=== PATIENT | male | born 1960 | race Caucasian/White ===

== ENCOUNTER 2018-05-24 12:16 | Emergency (ER) | payer OTHER, SELFPAY ==
[2018-05-24] MEDS ORDERED: Adacel (T-DAP) 0.5 ML SYRINGE ONE (12:32)
[2018-05-24] MEDS ORDERED: Bacitracin Zinc 1 Packet ONE (12:44)
--- NOTE | 2018-05-24 13:04 | RAD ---
RIGHT FOOT THREE VIEWS: History: Right foot injury. FINDINGS: Lisfranc joint alignment is anatomic. Plantar arch is maintained. Small plantar and Achilles enthesop hyte. Osteophytosis throughout the foot. Joint space narrowing and subchondral sclerosis most pronoun rafael at the first metatarsal phalangeal joint. No acute fracture, dislocation, or aggressive osseous e rosions. IMPRESSION: Degenerative changes most pronounced at the first metatarsal phalangeal joint. No acute osseous abnor malities are demonstrated. POS: [facility]
== END 2018-05-24 13:25 | disposition home or self-care (01) ==
LOC: SCSER 12:16
DX: S91.311A Laceration without foreign body, right foot, initial encounter (principal); E11.9 Type 2 diabetes mellitus without complications; I10 Essential (primary) hypertension; F17.220 Nicotine dependence, chewing tobacco, uncomplicated; W22.03XA Walked into furniture, initial encounter
CPT/HCPCS: 90471; 90715

== ENCOUNTER 2019-05-04 17:39 | Observation (INO) | payer SELFPAY ==
[~2019-05-04 17:39] MED LIST: Iopamidol-370 76% 500 ML 1 ML ONE
[2019-05-04 18:09] LABS: #Basophils 0.1 thou/uL (0.0-0.2); #Eosinphils 0.1 thou/uL (0.0-0.7); #Lymphocytes 1.6 thou/uL (1.20-3.40); #Monocytes 0.6 thou/uL (0.11-0.59); #Neutrophils 3.9 thou/uL (1.40-6.50); %Basophils 1.2 % (0.0-1.0); %Eosinophils 2.1 % (0.0-10.0); %Monocytes 9.7 % (0.0-10.0); Hemoglobin 15.5 g/dL (14.0-18.0); Mean Corpuscular HGB CONC 35.6 g/dL (32.0-36.0); Mean Corpuscular Hemoglobin 32.7 pg (27.0-31.0); Mean Corpuscular Volume 91.8 fL (78.0-98.0); Mean Platelet Volume 9.3 fL (7.4-10.4); Platelet Count 72 thou/uL (130-400); RBC Distribution Width 11.9 % (11.5-14.5); Red Blood Cell (RBC) Count 4.73 mill/uL (4.70-6.10); White Blood Cell (WBC) Count 6.4 thou/uL (4.8-10.8)
[2019-05-04 18:27] LABS: ALT (SGPT) 34 U/L (8-55); AST (SGOT) 41 U/L (5-34); Albumin 3.6 g/dL (3.5-5.0); Alkaline Phosphatase 98 U/L (40-110); Anion Gap 14 mmol/L (10-20); BUN (Urea Nitrogen) 16 mg/dL (8.4-25.7); Bilirubin, Total 4.2 mg/dL (0.2-1.2); Calc. Creatinine Clearance 0 mL/min (70-130); Calcium 9.2 mg/dL (7.8-10.44); Carbon Dioxide 26 mmol/L (22-29); Chloride 99 mmol/L (98-107); Estimated GFR-MDRD 82; Globulin 3.3 g/dL (2.4-3.5); Glucose 187 mg/dL (70-105); Lipase 56 U/L (8-78); Protein, Total 6.9 g/dL (6.0-8.3); Sodium 135 mmol/L (136-145)
--- NOTE | 2019-05-04 18:34 | RAD ---
PORTABLE CHEST: 05/04/19 HISTORY: Mid sternal chest pain. COMPARISON: A 08/14/16 study. Heart size and mediastinum are within normal limits. Lungs are clear of any infiltrative process. An azygos lobe is incidentally seen. IMPRESSION: No active intrathoracic disease. POS: [facility]
[2019-05-04] MEDS ORDERED: Morphine 4 MG/ML VIAL ONE (18:35)
[2019-05-04] MEDS ORDERED: Ondansetron PF 4 MG/2 ML Vial ONE (18:35)
--- NOTE | 2019-05-04 19:00 | ULT ---
GALLBLADDER ULTRASOUND: 05/04/19 HISTORY: Right upper quadrant pain. Exam is limited by body habitus. There is echogenic density with shadowing in the expected location o f the gallbladder. This is most compatible with a contracted gallbladder with gallstones. The common duct is 5 mm. Liver is difficult to visualize. It is of mild increased echogenicity. No focal abnor malities. Right kidney is also difficult to visualize but does not appear obstructed. The pancreas is totally o bscured. IMPRESSION: Dense shadowing from the expected location of the gallbladder. This would be most compatible with a c ontracted gallbladder with gallstones with a normal caliber common duct. POS: [facility]
--- NOTE | 2019-05-04 20:14 | CT ---
CT ABDOMEN AND PELVIS PERFORMED WITH CONTRAST ENHANCEMENT: 05/04/19 HISTORY: Abdominal pain. The lung bases are clear of infiltrates. The liver shows no focal abnormalities. The spleen is marked ly enlarged. It measures 17.5 cm in length. The pancreas region is unremarkable. Gallstones are prese nt within a contracted gallbladder. Right and left adrenal glands and right and left kidneys are normal in appearance. The appendix is re trocecal in location and normal in size. CT OF PELVIS PERFORMED WITH CONTRAST ENHANCEMENT: No evidence of adenopathy, mass, or free fluid. Postoperative changes of the spine are noted. IMPRESSION: 1. Gallstones within a contracted gallbladder. 2. Marked splenomegaly. POS: [facility]
[2019-05-04] MEDS ORDERED: Aspirin Chewable 81 MG TAB ONE (21:04)
[2019-05-04 21:20] LABS: Bilirubin Negative (Negative); Blood, Urine Negative (Negative); Clarity Clear (Clear); Glucose, Urine (Dipstick) 150 mg/dL (Negative); Leukocyte Negative Leu/uL (Negative); Nitrite Negative (Negative); Protein, Urine (Dipstick) Negative (Neg-Trace)
[2019-05-04] MEDS ORDERED: Nitroglycerin 0.4 MG TAB (25 Tab Bottle) PO PRN (22:45)
[2019-05-04 23:01] LABS: CKMB 3.6 ng/mL (0-6.6)
[2019-05-04] MEDS ORDERED: Ondansetron PF 4 MG/2 ML Vial IVP PRN (23:10)
[2019-05-04] MEDS ORDERED: Ondansetron ODT 4 MG TAB SL PRN (23:10)
[2019-05-04] MEDS ORDERED: Morphine 4 MG/ML VIAL SLOW IVP PRN (23:11)
[2019-05-04 23:13] VITALS: BMI 39.0
[2019-05-04] MEDS ORDERED: Sodium Chloride 0.9% 1,000 ML IV SCH (23:15)
[2019-05-05 01:31] LABS: Troponin I 0.015 ng/mL (< 0.028)
--- NOTE | 2019-05-05 02:06 | HP ---
CHIEF COMPLAINT: Chest pain. HISTORY OF PRESENT ILLNESS: This patient is a 59-year-old male with history of diabetes, hypertension, and smokeless tobacco use. He presented to the emergency department reporting chest pain. The patient reports that he has recently been referred from his primary care provider, Dr. Robert Sanderson to Dr. Trammell. He thought it was because he was having skin tears and purpura on his arms, but I suspect it may have something to do with his thrombocytopenia as well. Dr. Trammell subsequently had the patient seen by [facility]. He was referred to Dr. Reza, he is not sure why, but I suspect it has something to do with his elevated bilirubins, and he said GI and Dr. Reza referred him to a type proof reproducer. He saw Dr. Hooker and said he had an echocardiogram done, which apparently revealed his heart was "strong," but that he had a valve issue, but he does not know the details of that at this time. Today, the patient came in again reporting chest pain. He states that it started a couple of weeks ago. It was intermittent, but has become more frequent and more intense. Last night, it was severe, was a 9/10 to the point where he could not sleep. It persisted today and so he came to the emergency department, described it as a sharp pain in the central chest. He felt a little bit in his right shoulder and neck, but has recently had a fall causing some bruising over his back around April 22, so he was not sure if it was related to that. He presented here and indicated he had no associated shortness of breath or diaphoresis. He does report some mild nausea and lightheadedness and he also indicates that he has slight tenderness in the area of his xiphoid. The patient also reports that he has a nodule in the area behind his scrotum that has been present for a long while and is generally sore. REVIEW OF SYSTEMS: Notable for generally poor sleep. Otherwise, he has had normal appetite, bowel and bladder habits. All other systems reviewed. All pertinent positives and negatives noted in the history of present illness. PAST MEDICAL HISTORY: Again as above, notable for diabetes mellitus, hypertension, osteoarthritis. He has severe varicose veins and chronic stasis dermatitis. PAST SURGICAL HISTORY: He has had back surgery, lumbar spine with hardware, has had right shoulder surgery with hardware. FAMILY HISTORY: Father had diabetes, coronary artery disease with CABG. Mother had diabetes mellitus with cardiomegaly, coronary artery disease and a CVA. SOCIAL HISTORY: The patient uses snuff tobacco. Does not smoke. Denies alcohol or drugs. He is . His sister, Edna Carlson, would be his surrogate decision maker should that become necessary. ALLERGIES: NONE REPORTED. MEDICATIONS: 1. Lasix 40 mg daily p.r.n. edema. 2. Aldactone 100 mg daily. 3. Lisinopril 20 mg daily. 4. Metformin 500 mg daily. 5. Magnesium 250 mg p.o. daily. PHYSICAL EXAMINATION: VITAL SIGNS: Last recorded vitals, BP 157/73, pulse 62, respirations 17, temperature is 98.3, O2 saturation 100% on room air. GENERAL APPEARANCE: Age-appropriate male. He is in no distress. He is awake, alert, pleasant, cooperative. He is obese. HEENT: EVELINA. No OP lesions. Has significant upper dental hardware. NECK: Supple and symmetric. HEART: Regular rate and rhythm. I do not appreciate any murmurs. LUNGS: Clear to auscultation bilaterally with good chest wall expansion or exchange. ABDOMEN: Soft, nontender, and nondistended. Positive bowel sounds. No masses. No organomegaly. EXTREMITIES: There is no cyanosis, clubbing, or edema. Presently, he does have varicose veins all the way up to the thighs. He has stasis dermatitis bronzing. PSYCHIATRIC: Normal affect and behavior. NEUROLOGIC: The patient moves all extremities spontaneously. He is cognitively intact and cranial nerves are functioning normally. GENITOURINARY: There is a 1 x 3 cm firm, smooth, nodular, subcutaneous that is slightly tender without significant erythema or drainage consistent with a subcutaneous cyst. LABORATORY DATA: White count 6.4, hemoglobin 15.5, platelet count 72,000. Old labs indicate they were low going back as far as 2017. Chemistry; sodium is 135, glucose 187, total bilirubin is 4.2 with old labs indicating that this has been elevated previously going back to 2017. AST is 41, ALT is 34, CK 77, and troponin less than 0.01 with subsequent 0.03. BNP 100.7. Albumin 3.6. Urinalysis shows trace ketones and glucose. CT scan of the abdomen and pelvis show gallstones in a contracted gallbladder and marked splenomegaly. Chest x-ray is negative. Abdominal ultrasound, dense shadowing from the expected location of the gallbladder, most compatible with contracted gallbladder and gallstones with a normal caliber common bile duct. EKG shows normal sinus rhythm at 75 beats per minute with no ischemic changes. IMPRESSION AND PLAN: 1. Chest pain, unclear etiology, but certainly concerning in a patient who has a family history of coronary artery disease, diabetes and hypertension along with obesity and smokeless tobacco use. He has an initial negative troponin with subsequent is indeterminate. We will keep him in observation. Continue monitoring troponins. Keep him on a manager monitoring. He did receive aspirin in the emergency department. However, he has splenomegaly and thrombocytopenia. We will not be more aggressive with anticoagulation unless prompted to do so by new findings. We will schedule him for a nuclear medicine stress test in the morning. Other etiologies include possible gallstone related pain, although I suspect it is not that. He also has some tenderness to palpation of the xiphoid, but I do not believe this is musculoskeletal in nature either, although it is possible. 2. Thrombocytopenia with splenomegaly. The patient has been seen previously by Dr. Trammell, I do not have any records other than previous labs ordered by Dr. Trammell. I suspect the thrombocytopenia is related to the splenomegaly, although the splenomegaly is of unknown etiology. This appears to be long-standing and suspect the best course of action will be to simply contact Dr. Trammell' office when possible to get some further history on that. 3. Splenomegaly as above, chronic, unclear etiology. 4. Hypertension. Continue usual home medications. 5. Diabetes mellitus. We will continue with the metformin for now. I suspect if we find something that warrants a contrast study, it can be held subsequent. Continue Accu-Cheks. 6. Perineal cyst that appears chronic and stable. No acute intervention indicated. 7. Elevated bilirubin, unclear etiology, but I do not suspect it is related to acute issues. It has been elevated for a couple of years and may simply be Gilbert syndrome. Again, he has seen Dr. Reza previously, who can likely reach out to him for further information on that. Job ID: [id number]
[2019-05-05 05:07] LABS: Hemoglobin A1c 9.6 % (4.0-6.0)
[2019-05-05 05:08] LABS: #Basophils 0.1 thou/uL (0.0-0.2); #Eosinphils 0.2 thou/uL (0.0-0.7); #Lymphocytes 1.5 thou/uL (1.20-3.40); #Monocytes 0.7 thou/uL (0.11-0.59); #Neutrophils 3.8 thou/uL (1.40-6.50); %Basophils 0.9 % (0.0-1.0); %Eosinophils 3.4 % (0.0-10.0); %Lymphocytes 23.7 % (21.0-51.0); %Monocytes 10.7 % (0.0-10.0); %Neutrophils 61.4 % (42.0-75.0); Hemoglobin 14.3 g/dL (14.0-18.0); Mean Corpuscular HGB CONC 36.1 g/dL (32.0-36.0); Mean Corpuscular Hemoglobin 33.2 pg (27.0-31.0); Platelet Count 76 thou/uL (130-400); RBC Distribution Width 11.9 % (11.5-14.5); Red Blood Cell (RBC) Count 4.29 mill/uL (4.70-6.10); White Blood Cell (WBC) Count 6.1 thou/uL (4.8-10.8)
[2019-05-05 05:20] LABS: ALT (SGPT) 28 U/L (8-55); AST (SGOT) 34 U/L (5-34); Alkaline Phosphatase 91 U/L (40-110); Anion Gap 15 mmol/L (10-20); BUN (Urea Nitrogen) 15 mg/dL (8.4-25.7); Calc. Creatinine Clearance 175 mL/min (70-130); Calcium 8.3 mg/dL (7.8-10.44); Carbon Dioxide 23 mmol/L (22-29); Chloride 102 mmol/L (98-107); Cholesterol 145 mg/dl (< 200 Desired); Estimated GFR-MDRD 88; Globulin 2.9 g/dL (2.4-3.5); Glucose 316 mg/dL (70-105); HDL Cholesterol 36 mg/dL (>60 Neg Risk); LDL Cholesterol, Calculated 82 mg/dL; Potassium 4.4 mmol/L (3.5-5.1); Protein, Total 5.9 g/dL (6.0-8.3); Sodium 136 mmol/L (136-145); Triglycerides 136 mg/dL (Less than 150)
[2019-05-05 05:24] LABS: Troponin I 0.015 ng/mL (< 0.028)
[2019-05-05] MEDS ORDERED: Aspirin 325 MG TAB PO SCH (08:00)
[2019-05-05] MEDS ORDERED: metFORMIN 500 MG TAB PO SCH ×3 (08:00→17:00)
[2019-05-05] MEDS ORDERED: Furosemide 40 MG TAB PO SCH (09:00)
[2019-05-05] MEDS ORDERED: Spironolactone 100 MG TAB PO SCH (09:00)
[2019-05-05] MEDS ORDERED: FLU VACC QS2019-20(6MOS UP)/PF 60 MCG/0.5 ML SYRINGE IM ONE (09:00)
[2019-05-05] MEDS ORDERED: Lisinopril 20 MG TAB PO SCH (09:00)
[2019-05-05] MEDS ORDERED: Morphine 2 MG/ML SYRINGE SLOW IVP PRN (10:09)
[2019-05-05] MEDS ORDERED: Iopamidol-370 76% 500 ML 1 ML ONE (11:27)
--- NOTE | 2019-05-05 15:16 | NM ---
EXAM: Cardiac SPECT HISTORY: Chest pain, hypertension, diabetes mellitus PROTOCOL: Stress only, single isotope TYPE OF STRESS: Pharmacologic stress with adenosine was monitored and interpreted by Dr. Loya. RADIOPHARMACEUTICAL: 30 mCi technetium 99m-sestamibi injected intravenously FINDINGS: Homogeneous tracer distribution is seen in the myocardial segments on the post stress images. Gated SPECT LVEF: 59% Wall motion exam: Normal IMPRESSION: Normal post stress myocardial perfusion scan.
--- NOTE | 2019-05-05 18:30 | PDOC.HOSPP ---
- Subjective Encounter Date: 05/05/19 Encounter Time: 17:00 Subjective: Pt seen for followup re: chest pain. Reports pain is better. - Objective Vital Signs & Weight: Vital Signs (12 hours) Temp Pulse Resp BP Pulse Ox 05/05/19 15:10 97.8 F 70 13 131/62 99 05/05/19 14:41 98 05/05/19 11:42 97.5 F L 61 14 125/64 98 05/05/19 08:00 97.8 F 61 16 123/68 98 Weight Weight 304 lb 11.2 oz I&O: 05/04/19 05/05/19 05/06/19 06:59 06:59 06:59 Intake Total 544.6 1420 Output Total 400 Balance 544.6 1020 Result Diagrams: 05/05/19 04:42 05/05/19 04:42 Additional Labs: Accuchecks 05/05/19 05/05/19 05/04/19 16:18 11:09 23:04 POC Glucose 384 H 221 H 177 H Labs and MARs reviewed by me EKG Reviewed by me: Yes (Tele; NSR) Hospitalist ROS - Review of Systems Cardiovascular: reports: chest pain. denies: palpitations, orthopnea, paroxysmal noc. dyspnea, edema, light headedness Gastrointestinal: denies: nausea, vomiting, abdominal pain, diarrhea, constipation, melena, hematochezia - Medication Medications: Active Medications Generic Name Dose Route Start Last Admin Trade Name Freq PRN Reason Stop Dose Admin Aspirin 325 mg 05/05/19 08:00 05/05/19 08:45 Aspirin PO 325 mg QAM-WM ADELFO Administration Furosemide 40 mg 05/05/19 09:00 05/05/19 08:46 Lasix PO 40 mg DAILY ADELFO Administration Lisinopril 20 mg 05/05/19 09:00 05/05/19 08:46 Zestril PO 20 mg DAILY ADELFO Administration Metformin HCl 1,000 mg 05/05/19 08:00 05/05/19 08:46 Glucophage PO 1,000 mg QAM-WM ADELOF Administration Metformin HCl 500 mg 05/05/19 17:00 05/05/19 16:23 Glucophage PO 500 mg QPM-WM ADELFO Administration Morphine Sulfate 2 mg 05/05/19 10:09 05/05/19 10:15 Morphine SLOW IVP 2 mg Q6H PRN Administration Moderate to Severe Pain (6-10) Spironolactone 100 mg 05/05/19 09:00 05/05/19 08:46 Aldactone PO 100 mg DAILY ADELFO Administration - Exam General - other findings: Obese Eye: scleral icterus ENT: moist mucosa Neck: supple, no lymphadenopathy Heart: RRR, no rubs Respiratory: CTAB, no rales Gastrointestinal: soft, non-tender Extremities: no clubbing Psychiatric: normal affect, normal behavior Hosp A/P (1) Chest pain Code(s): R07.9 - CHEST PAIN, UNSPECIFIED Status: Acute (2) Abnormal LFTs Code(s): R94.5 - ABNORMAL RESULTS OF LIVER FUNCTION STUDIES Status: Chronic (3) DM2 (diabetes mellitus, type 2) Status: Chronic (4) HTN (hypertension) Code(s): I10 - ESSENTIAL (PRIMARY) HYPERTENSION Status: Chronic (5) Osteoarthritis Code(s): M19.90 - UNSPECIFIED OSTEOARTHRITIS, UNSPECIFIED SITE Status: Chronic - Plan d-dimer elevated, await CTA chest. Nuclear stress test negative. HTN controlled. Resume home medications, continue accuchecks and ISS (HbA1c 9.6) Discussed with GI service, pt to follow up with Dr. Reza as outpt.
[2019-05-05 19:24] VITALS: BP 125/67; TEMP 98
--- NOTE | 2019-05-05 19:46 | CT ---
CT ANGIO OF CHEST PERFORMED WITH IV CONTRAST ENHANCEMENT WITH 3D RECONSTRUCTIONS: Date: 05/05/2019 HISTORY: Cough. Shortness of breath. FINDINGS: An azygos lobe is incidentally seen. The lungs are clear of any infiltrative process. No pulmonary no dules or pleural effusions. The thoracic aorta is normal in caliber. There is good pulmonary artery opacification and no CT evide nce for pulmonary embolus. No significant mediastinal, hilar, or axillary adenopathy. Gallstones are noted. Spleen is incompletely visualized, but is enlarged. Liver has a nodular cirrhot ic contour. IMPRESSION: 1. No CT evidence for pulmonary embolus. 2. Cirrhotic change of the liver with marked splenomegaly. 3. Gallstones. POS: [facility]
--- NOTE | 2019-05-06 14:57 | DIS ---
DATE OF ADMISSION: 05/04/2019 DATE OF DISCHARGE: 05/05/2019 PRIMARY CARE PROVIDER: Robert Sanderson MD CONDITION OF PATIENT ON THE DAY OF DISCHARGE: Stable. I assessed Mr. Hunter on the day of discharge. Please refer to my daily hospitalist progress note for further details regarding this [id number] encounter. DISCHARGE DIAGNOSES: 1. Chest pain. 2. Chest pain, most likely secondary to musculoskeletal etiology. 3. Abnormal liver function tests. DISCHARGE MEDICATIONS: 1. Lasix 40 mg daily. 2. Glimepiride 4 mg 2 times a day. 3. Lisinopril 20 mg daily. 4. Magnesium 250 mg as needed. 5. Spironolactone 100 mg daily. 6. Metformin 1000 mg in the morning and 500 mg in the evening, to be resumed with morning dose on May 08, 2018. HOSPITAL COURSE: Mr. Hunter is a pleasant 59-year-old gentleman, who was admitted to [facility] on May 04, 2019, for chest pain. He had a nuclear stress test, which was normal, left ventricular ejection fraction was 59 %. He also had elevated D-dimer. CT angiogram of the chest did not show any evidence for pulmonary embolism. He had cirrhotic change of the liver with marked splenomegaly and gallstones. Gastroenterology Service was consulted for abnormal liver function tests. They recommended followup with Dr. Reza as outpatient. POST-ACUTE CARE FOLLOWUP: With primary care provider in [address] Reza in 2 to 3 weeks. ACTIVITY: Ad jasper. DIET: Heart healthy and diabetic. Many thanks for allowing me to participate in your patient's care. Please feel free to contact me with any questions or concerns. DISCHARGE DESTINATION: Home. Job ID: [id number] [facility]
--- NOTE | 2019-05-07 12:03 | PDOC.EVN ---
Event Note - Event Note Event Note: Contacted patient by telephone. Told his of the error in discharge paperwork. He should start metformin 1,000 mg Q AM and 500 mg QPM starting with AM dose tomorrow, May 08, 2019. Patient expressed understanding.
== END 2019-05-05 20:38 | disposition home or self-care (01) ==
LOC: ERS 17:39 → 2SW 21:18
PROVIDERS: ADMIT Internal Medicine; ATTEND Internal Medicine
DX: R07.9 Chest pain, unspecified (principal); R94.5 Abnormal results of liver function studies; E11.9 Type 2 diabetes mellitus without complications; I10 Essential (primary) hypertension; F17.290 Nicotine dependence, other tobacco product, uncomplicated; M19.90 Unspecified osteoarthritis, unspecified site; I83.10 Varicose veins of unspecified lower extremity with inflammation; D69.6 Thrombocytopenia, unspecified; R16.1 Splenomegaly, not elsewhere classified; N50.89 Other specified disorders of the male genital organs; K80.20 Calculus of gallbladder without cholecystitis without obstruction; R79.1 Abnormal coagulation profile; Z82.49 Family history of ischemic heart disease and other diseases of the circulatory system; Z79.84 Long term (current) use of oral hypoglycemic drugs; Z79.899 Other long term (current) drug therapy
CPT/HCPCS: 36415; 36416; 71045; 71275; 74177; 76705; 78452; 80053; 80061; 81003; 82248; 82550; 82553; 83036; 83690; 83735; 83880; 84484; 85025; 85379; 90471; 90686; 90732; 93005; 93017; 94760; 96361; 96374; 96375; 96376; A9500; G0008; G0009; G0378; J0153; J2270; J2405; Q9967

== ENCOUNTER 2019-05-11 22:05 | Inpatient (IN) | payer SELFPAY ==
[2019-05-11 22:46] LABS: #Basophils 0.1 thou/uL (0.0-0.2); #Eosinphils 0.2 thou/uL (0.0-0.7); #Lymphocytes 1.7 thou/uL (1.20-3.40); #Monocytes 0.8 thou/uL (0.11-0.59); #Neutrophils 7.4 thou/uL (1.40-6.50); %Basophils 1.3 % (0.0-1.0); %Eosinophils 2.3 % (0.0-10.0); %Lymphocytes 16.8 % (21.0-51.0); %Monocytes 7.9 % (0.0-10.0); %Neutrophils 71.8 % (42.0-75.0); Hemoglobin 15.3 g/dL (14.0-18.0); Mean Corpuscular HGB CONC 35.6 g/dL (32.0-36.0); Mean Corpuscular Hemoglobin 32.8 pg (27.0-31.0); Mean Corpuscular Volume 92.2 fL (78.0-98.0); Mean Platelet Volume 8.4 fL (7.4-10.4); Platelet Count 98 thou/uL (130-400); RBC Distribution Width 12.3 % (11.5-14.5); Red Blood Cell (RBC) Count 4.66 mill/uL (4.70-6.10); White Blood Cell (WBC) Count 10.2 thou/uL (4.8-10.8)
[2019-05-11] MEDS ORDERED: Acetaminophen 500 MG TAB ONE (22:53)
[2019-05-11] MEDS ORDERED: Sodium Chloride 0.9% 100 ML ONE (22:53)
[2019-05-11] MEDS ORDERED: Piperacillin/Tazobactam 3.375 GM VIAL ONE (22:53)
--- NOTE | 2019-05-11 23:03 | CT ---
CT OF THE ABDOMEN AND PELVIS WITH IV CONTRAST INDICATION: Perineal abscess and cellulitis COMPARISON: CT abdomen and pelvis dated May 04, 2019 FINDINGS: ABDOMEN: Lung bases: Clear Liver: There is a cirrhotic morphology of the liver. No focal hepatic lesion is evident Gallbladder: Cholelithiasis Pancreas: Normal. Adrenal glands: Normal. Spleen: Enlarged measuring 18 cm Kidneys and ureters: Normal. No hydronephrosis. Vasculature: There are mild vascular calcifications seen involving the visualized vasculature. Lymph nodes:No lymphadenopathy. Free fluid in abdomen:No free fluid is evident. PELVIS: Small and large bowel: Normal Appendix:Normal Bladder: Normal. Rectal and perirectal soft tissues:Normal. Reproductive structures: Normal. Free fluid in pelvis: No free fluid is evident. Lymphadenopathy pelvis: No lymphadenopathy is evident. Osseous structures: No acute osseous abnormality. No destructive osteolytic or osteoblastic lesion i s identified. There is scattered degenerative and osteoarthritic changes. There is posterior lateral spinal instrumentation at L4-5 consistent with a posterior lateral fusion. Soft tissues:There is a 4.2 x 2 cm abscess involving the right aspect of the perineum on image 119 of series 2. IMPRESSION: 1. Right-sided perineal abscess as above. 2. Findings of cirrhosis with portal hypertension. 3. Cholelithiasis
[2019-05-11 23:05] LABS: ALT (SGPT) 23 U/L (8-55); AST (SGOT) 30 U/L (5-34); Albumin 3.3 g/dL (3.5-5.0); Alkaline Phosphatase 97 U/L (40-110); Anion Gap 14 mmol/L (10-20); BUN (Urea Nitrogen) 12 mg/dL (8.4-25.7); Bilirubin, Total 3.5 mg/dL (0.2-1.2); Calc. Creatinine Clearance 0 mL/min (70-130); Calcium 8.5 mg/dL (7.8-10.44); Carbon Dioxide 24 mmol/L (22-29); Chloride 102 mmol/L (98-107); Estimated GFR-MDRD 85; Globulin 3.1 g/dL (2.4-3.5); Glucose 170 mg/dL (70-105); Potassium 3.7 mmol/L (3.5-5.1); Protein, Total 6.4 g/dL (6.0-8.3); Sodium 136 mmol/L (136-145)
[2019-05-12] MEDS ORDERED: Clindamycin/D5W 900 mg/50 ml Premix Bag ONE (00:06)
[2019-05-12 01:35] LABS: Lactic Acid 1.6 mmol/L (0.5-2.2)
[2019-05-12] MEDS ORDERED: Sodium Chloride 0.9% 1,000 ML IV SCH ×2 (01:44→01:58)
[2019-05-12 01:57] VITALS: BMI 38.9
[2019-05-12] MEDS ORDERED: Dextrose 5% in Water 1,000 ML IV PRN (01:58)
[2019-05-12] MEDS ORDERED: Dextrose 50% Abboject 50 ML SYRINGE SLOW IVP PRN (01:58)
[2019-05-12] MEDS ORDERED: Vancomycin HCl 1 GM in Premix Bag 1 BAG IVPB SCH (02:00)
--- NOTE | 2019-05-12 03:00 | HP ---
PRIMARY CARE PHYSICIAN: Dr. Sanderson. CHIEF COMPLAINT: Right groin pain and swelling x1 week, worsened in past one day. HISTORY OF PRESENT ILLNESS: This is a 59-year-old male with past medical history of hypertension, diabetes, prior alcohol use, and recent hospitalization for chest pain with negative Lexiscan stress test, who presents to [facility] for 1-week history of worsening right groin pain and discomfort, that has progressed over the past one week and worsened in the past one day with increased redness and bloody discharge, prompting further evaluation. The patient reports symptoms have been persistent since last hospitalization when he noticed the cyst in his scrotum. He reports addressing this to doctors, but was reassured for outpatient followup. Throughout the week, his symptoms have worsened to the point of bloody drainage and increasing pain aggravated with standing or sitting upright and associated with nausea and headaches, prompting further re-evaluation. In the emergency room, CBC was unremarkable. Chemistries revealed a serum glucose of 170. A CT abdomen and pelvis with contrast revealed a right-sided perineal abscess, 4.2 x 2 cm involving the right aspect of the perineum and the patient was noted to have evidence of scrotal cellulitis on examination. CT scan also noted findings suggestive of cirrhosis with portal hypertension as well as cholelithiasis. The patient was administered 1 L normal saline bolus, 1 g oral Tylenol, 2 g IV vancomycin, 3.375 g IV Zosyn, and 900 mg IV clindamycin. Admitted for further inpatient evaluation. On-call urologist was consulted. At bedside, the patient is accompanied by sister and [id number]. He corroborates history. He offers no other acute complaints. He denies any prior similar symptoms. He notes remote history for varicocele. He denies any urinary complaints and notes recently stools have been little loose in consistency. He is compliant with his home diabetes medications and was recently increased on metformin to 1000 mg daily and was also noted to be on glimepiride. PAST MEDICAL HISTORY: Hypertension, type 2 diabetes mellitus, osteoarthritis, and prior alcohol use. PAST SURGICAL HISTORY: Lumbar spine surgery with hardware implantation, right shoulder surgery with hardware implantation, and varicocele surgery. SOCIAL HISTORY: The patient is . He denies tobacco use. He admits to prior alcohol use, but no current use. He denies any illicit drug use. He used to dips snuff, but none recently. ALLERGIES: NONE REPORTED. REVIEW OF SYSTEMS: Pertinent positives as per HPI. Remainder of review of systems negative. HOME MEDICATIONS: Will be reviewed as per admission medication reconciliation. FAMILY HISTORY: Notable for coronary artery disease and CABG in patient's father. Also family history of prostate cancer and breast cancer in multiple first-degree relatives. PHYSICAL EXAMINATION: VITAL SIGNS: T-max, afebrile 98.4, pulse 68 to 89, blood pressure 111/54 to 136/79, oxygen saturation 100% on room air, and respirations 16. GENERAL APPEARANCE: This is an elderly male, who is awake, alert, oriented, coherent, lucid, nontoxic in appearance, in mild distress due to scrotal pain. HEENT: Normocephalic and atraumatic. No facial asymmetry. Mucous membranes moist. Pupils equally round. Extraocular muscles intact. There is mild scleral icterus noted. NECK: Supple. CARDIOVASCULAR: S1 and S2. Regular rate and rhythm. No harsh murmurs. No chest wall tenderness to palpation. LUNGS: Bilateral equal air entry on anterior auscultation. Nonlabored respirations. No wheezing or rales. ABDOMEN: Soft, nontender, nondistended. No peritoneal signs appreciated. EXTREMITIES: No edema, cyanosis, or deformities noted. Chronic stasis changes on bilateral lower extremities with varicose veins noted. There are petechiae, non-purpuric lesions overlying the upper extremities bilaterally. GENITAL: There is an erythematous, warm, and tender area in the right perineum with a blackish head noted with some mild fluctuance. There is extensive erythema overlying the scrotum without any noted discharge. There is no penile discomfort to palpation. LABORATORY DATA: Lactic acid 1.6. Sodium 136, potassium 3.7, chloride 102, bicarb 24, glucose 170, BUN and creatinine 12/0.91, T bilirubin 3.5, albumin 3.3, AST 30, ALT 23. WBC 10.2, H and H 15.3/43, platelets 98. IMAGING DATA: CT of abdomen and pelvis with IV contrast reveals a 4.2 x 2 cm abscess involving the right aspect of the perineum. Findings of cirrhosis with portal hypertension. Cholelithiasis. ASSESSMENT: 1. Right perineal abscess with scrotal cellulitis in a diabetic patient. The patient will be admitted to inpatient status and placed on Med/Surg unit. We will continue broad-spectrum antibiotics with vancomycin, Zosyn, clindamycin, and monitor renal function. On-call urologist consulted for surgical evaluation. We will maintain n.p.o. We will monitor overlying area for clinical improvement. We will monitor Accu-Cheks for euglycemia and obtain a hemoglobin A1c. 2. Type 2 diabetes mellitus. The patient is on oral metformin and glimepiride at home, which will be held and started on insulin in hospital for monitoring of euglycemia. 3. Suspected liver cirrhosis with portal hypertension noted on CT abdomen and pelvis 05/11/2019. Unclear etiology. The patient has prior alcohol history. He has noted hyperbilirubinemia and thrombocytopenia, which was evident on last hospitalization on 05/02. Monitor blood counts in setting of surgical intervention. 4. Hypertension, benign. 5. Recent hospitalization for chest pain with negative Lexiscan stress test. 6. Deep venous thrombosis prophylaxis: Bilateral lower extremity SCD and ambulation. Avoid anticoagulation due to thrombocytopenia and plans for surgical intervention. 7. Check a.m. labs, 05/12/2019. 8. Disposition: Admitted as inpatient status in Med/Surg unit. 9. Plan of care discussed with the patient, the patient's sister, and [id number] at bedside. The patient was seen and examined on 05/12/2019. Job ID: [id number]
[2019-05-12 05:16] LABS: INR-International Normal Ratio 1.3; Prothrombin Time 16.3 SEC (12.0-14.7)
[2019-05-12] MEDS ORDERED: Piperacillin/Tazobactam 3.375 GM in Sodium Chloride 0.9% 100 ML IVPB SCH (06:00)
[2019-05-12] MEDS ORDERED: Clindamycin/D5W 900 MG in Premix Bag 1 BAG IVPB SCH (08:00)
[2019-05-12] MEDS ORDERED: Lidocaine 1% (PF) 30 ML VIAL ONE (09:17)
[2019-05-12] MEDS ORDERED: traMADol HCl 50 MG TAB PO PRN (10:12)
[2019-05-12] MEDS ORDERED: Ondansetron PF 4 MG/2 ML Vial IVP PRN (10:13)
[2019-05-12] MEDS ORDERED: Morphine 10 MG/ML VIAL SLOW IVP SCH (10:15)
--- NOTE | 2019-05-12 15:03 | PDOC.HOSPP ---
- Subjective Encounter Date: 05/12/19 Encounter Time: 15:01 Subjective: Mr. Hunter was seen today in follow-up of groin cyst. He just had it aspirated and is having some pain. No other complaints. - Objective Vital Signs & Weight: Vital Signs (12 hours) Temp Pulse Resp BP Pulse Ox 05/12/19 11:59 98.1 F 76 16 103/68 95 05/12/19 07:34 98.8 F 79 18 100/61 94 L 05/12/19 04:16 98.6 F 71 19 120/77 97 Weight Weight 303 lb 1.6 oz I&O: 05/11/19 05/12/19 05/13/19 06:59 06:59 06:59 Intake Total 400 Balance 400 Result Diagrams: 05/11/19 22:30 05/11/19 22:30 Additional Labs: Accuchecks 05/12/19 05/12/19 05/12/19 12:02 10:15 04:21 POC Glucose 236 H 161 H 155 H 05/11/19 22:45 POC Glucose 171 H Hospitalist ROS - Medication Medications: Active Medications Generic Name Dose Route Start Last Admin Trade Name Freq PRN Reason Stop Dose Admin Sodium Chloride 10 ml 05/12/19 09:00 05/12/19 08:23 Flush - Normal Saline IVF 10 ml Q12HR ADELFO Administration - Exam Eye: PERRL Heart: RRR, no murmur, no gallops, no rubs, normal peripheral pulses Respiratory: CTAB, no wheezes, no rales, no ronchi, normal chest expansion, no tachypnea, normal percussion Gastrointestinal: soft, non-tender, non-distended, normal bowel sounds, no palpable masses, no hepatomegaly Extremities: no cyanosis Hosp A/P (1) Perineal cyst in male Code(s): N50.89 - OTHER SPECIFIED DISORDERS OF THE MALE GENITAL ORGANS Status : Acute (2) DM2 (diabetes mellitus, type 2) Status: Chronic (3) HTN (hypertension) Code(s): I10 - ESSENTIAL (PRIMARY) HYPERTENSION Status: Chronic (4) Osteoarthritis Code(s): M19.90 - UNSPECIFIED OSTEOARTHRITIS, UNSPECIFIED SITE Status: Chronic - Plan * Perineal Cyst- patient had drainage of the cyst. Fluid was sent for gram stain and culture * Antibiotics have been placed on hold * DM- blood glucose is stable * HTN-blood pressure is stable * Hopefully home tomorrow if clinically stable
--- NOTE | 2019-05-12 16:53 | CON ---
DATE OF CONSULTATION: 05/12/2019 CONSULTING: [facility]. REASON FOR CONSULTATION: Perineal abscess. HISTORY OF PRESENT ILLNESS: Mr. Hunter is a 59-year-old white male, who presented to the emergency room with a history of groin and scrotal pain for approximately 2 weeks, which has been progressively getting worse. The problem started approximately 1 to 2 weeks ago, at which point, he was previously in the ER for chest pain. At that time, he stated that he did have pain in his scrotum, which was evaluated and found to be a small knot. The ER physician felt that this may spontaneously resolve on its own with spontaneous drainage and sent the patient home. Unfortunately, this did not occur, and the patient progressively got worse pain with sitting or standing and walking along with nausea and headaches. He began having significant malaise. He denied having any fevers. He did have some drainage from the area, which was bloody and purulent and foul smelling. This prompted him to return to the ER last night, at which point, he underwent a CT with labs. The CT demonstrated a 4.2 x 2 cm involving the right perineum and base of the scrotum with scrotal cellulitis. There was no evidence of Ev gangrene or emphysema within the soft tissues. His CBC was relatively unremarkable with no significant elevation of white count and a serum glucose of 170. He was started on IV fluids and given vancomycin, Zosyn, and clindamycin. I was consulted for further assistance. On my discussion with the patient, he states he is still having pain down there. He states he has never had a previous abscess like this before. He denies urinary difficulties at baseline. He states that he normally keeps his blood sugars controlled relatively well. He does have a lot of back problems and is complaining of back pain still. He denies any chest pain or shortness of breath at this time. He has had a varicocele surgery before many years ago, but denies any other urologic surgeries. He has no history of hematuria or urolithiasis. ALLERGIES: NONE. HOME MEDICATIONS: 1. Zofran. 2. Protonix. 3. Magnesium. 4. Lisinopril. 5. Furosemide. 6. Metformin. 7. Spironolactone. PAST MEDICAL HISTORY: 1. Diabetes type 2. 2. Hypertension. 3. Osteoarthritis. 4. Spine problems. 5. Alcohol abuse in the past. PAST SURGICAL HISTORY: 1. Lumbar spine surgery with hardware implantation. 2. Right shoulder surgery. 3. Varicocele surgery. SOCIAL HISTORY: The patient is . He currently lives with a roommate. His sister is his closest family. He denies tobacco abuse. He previously used to have alcohol abuse, but states he quit. He denies any illicit drug use. REVIEW OF SYSTEMS: A 12-point review of systems reviewed and negative other than what was commented on the HPI. PHYSICAL EXAMINATION: VITAL SIGNS: Temperature 98.8, pulse 79, respirations 18, blood pressure 100/61, and saturation 94% on room air. GENERAL: No apparent distress. Communicative and alert. Answering questions appropriately. Obese, well-nourished, well-developed, appears stated age. HEENT: Normocephalic, atraumatic. Pupils are symmetric and round. Sclerae are nonicteric. Extraocular movements intact. Moist mucous membranes. Trachea midline. CARDIOVASCULAR: Regular rate and rhythm. Normal S1 and S2. Symmetric pulses. CHEST: Nonlabored breathing, symmetric expansion. LUNGS: Clear anteriorly. ABDOMEN: Soft, nontender, and nondistended. Positive bowel sounds. No organomegaly or hernias. GENITOURINARY: The patient is circumcised. The penis is nonfocal without lesions. Scrotum has mild edema. There is erythema over the majority of the right side of the scrotum with some induration of the base of the scrotum. Towards the posterior aspect of the scrotum onto the perineum, there is an abscess that looks like it has recently drained with an eschar over the top. It is indurated and exquisitely tender. There is no crepitus or surrounding evidence of Ev gangrene. Rectal exam was deferred at this time. EXTREMITIES: Some cyanosis with stasis dermatitis. No clubbing or edema. MUSCULOSKELETAL: No joint deformity or joint erythema noted. Full range of motion. The patient does have a lot of back problems. SKIN: Warm and dry. No rashes. There are multiple eschars on the patient's forearms and stasis dermatitis with onychomycosis of the lower extremities. NEUROLOGIC: Cranial nerves 2 through 12 grossly intact. No focal or sensory motor deficits identified. The patient has mild depressment of sensation on his feet. PSYCHIATRIC: Alert and oriented x3. Appropriate mood and affect. LABORATORY EVALUATION: Full set of labs is in the [employer] system, which I have reviewed. Of note, the patient's white count is 10.2, hemoglobin of 15.3, platelet count of 98. INR is 1.3. Creatinine is 0.91 with a blood sugar of 155 currently. Lactate is 1.6, decreased from 2.2. CT; I have reviewed the CT myself. CT abdomen and pelvis with contrast demonstrates a right-sided perineal abscess without evidence of emphysema or Ev gangrene. There is cirrhosis with portal hypertension and cholelithiasis. DESCRIPTION OF PROCEDURE: After discussion with the patient about a bedside I and D, the patient was prepped and draped in usual sterile fashion. Lidocaine was infiltrated around the abscess cavity with approximately 5 mL of 1% lidocaine plain. Using an 11 blade, an incision was made over the abscess cavity with drainage of a small amount of purulent fluid. Cultures were taken from inside the cavity and sent off for both anaerobic and aerobic cultures. The inside of the abscess cavity was suctioned out with a Yankauer suction. The wound was then copiously irrigated with initially hydrogen peroxide and then normal saline. The wound was then packed using half-inch iodoform dressing while the sister watched as I have instructed her on how to do this at home, so that she may continue wound care at home. Gauze was applied over the wound, and then, the patient was cleaned up and had mesh underwear put on. ASSESSMENT AND PLAN: A 59-year-old white male with diabetes, fairly well controlled at the current time with a perineal abscess, which apparently has spontaneously drained in the past and now has completed incision and drainage with washout. The patient should have full resolution of his abscess and infection with IV antibiotics at this point. I would recommend awaiting the culture results and then changing him to an oral antibiotic regimen to send him out on. If cultures did not grow because the patient has already been started on antibiotics, then we would recommend something to cover Gram positives and anaerobic bacteria, such as clindamycin or Bactrim for outpatient therapy. Wound care should be performed with half-inch iodoform gauze once a day, which will be done by the sister. I have instructed her on how to do this. I will see the patient back in 1 week for followup to ensure that he is healing appropriately. He was instructed not to submerge under water, and he should continue the wound care and followup appointments and keep his blood sugar very well controlled. Should there be progressive redness, pain, drainage, or fevers, the patient should return back to the ER or notify me for further evaluation. I will continue to follow along while the patient is inpatient, but from my standpoint, the patient could be discharged as soon as his culture results are back. Job ID: [id number]
[2019-05-13] MEDS: HYDROcodone/Acetaminophen 5/325 mg Tablet PO PRN (04:56)
[2019-05-13 05:32] LABS: #Basophils 0.1 thou/uL (0.0-0.2); #Eosinphils 0.2 thou/uL (0.0-0.7); #Lymphocytes 1.5 thou/uL (1.20-3.40); #Monocytes 0.5 thou/uL (0.11-0.59); #Neutrophils 3.5 thou/uL (1.40-6.50); %Basophils 0.9 % (0.0-1.0); %Eosinophils 3.1 % (0.0-10.0); %Lymphocytes 26.8 % (21.0-51.0); %Monocytes 8.1 % (0.0-10.0); %Neutrophils 61.2 % (42.0-75.0); Mean Corpuscular HGB CONC 35.4 g/dL (32.0-36.0); Mean Corpuscular Hemoglobin 32.7 pg (27.0-31.0); Mean Corpuscular Volume 92.3 fL (78.0-98.0); Mean Platelet Volume 8.1 fL (7.4-10.4); Platelet Count 76 thou/uL (130-400); RBC Distribution Width 12.2 % (11.5-14.5); Red Blood Cell (RBC) Count 3.98 mill/uL (4.70-6.10); White Blood Cell (WBC) Count 5.7 thou/uL (4.8-10.8)
[2019-05-13] MEDS: Saccharomyces boulardii 250 MG CAP PO SCH (09:19)
[2019-05-13] MEDS: Clindamycin 150 MG CAP PO SCH ×2 (11:36→17:43)
--- NOTE | 2019-05-13 14:21 | PDOC.HOSPP ---
- Subjective Encounter Date: 05/13/19 Encounter Time: 14:18 Subjective: Mr. Hunter was seen today in follow-up of perineal abscess. He is post drainage. He notes some soreness in the area. - Objective Vital Signs & Weight: Vital Signs (12 hours) Temp Pulse Resp BP Pulse Ox 05/13/19 10:49 98 F 69 18 104/68 93 L 05/13/19 07:16 97.8 F 68 18 121/79 93 L 05/13/19 04:00 98.2 F 69 18 113/65 94 L Weight Weight 303 lb 1.6 oz I&O: 05/12/19 05/13/19 05/14/19 06:59 06:59 06:59 Intake Total 400 1800 Balance 400 1800 Result Diagrams: 05/13/19 05:08 05/11/19 22:30 Additional Labs: Accuchecks 05/13/19 05/13/19 05/12/19 10:50 04:51 19:27 POC Glucose 230 H 159 H 139 H 05/12/19 16:17 POC Glucose 200 H Hospitalist ROS - Medication Medications: Active Medications Generic Name Dose Route Start Last Admin Trade Name Freq PRN Reason Stop Dose Admin Hydrocodone Bitart/Acetaminophen 1 tab 05/12/19 15:02 05/13/19 04:56 Tilly 5/325 PO 1 tab Q4H PRN Administration Moderate Pain (4-6) Clindamycin HCl 300 mg 05/13/19 12:00 05/13/19 11:36 Cleocin PO 300 mg Q6HR ADELFO Administration Saccharomyces Boulardii 250 mg 05/13/19 09:00 05/13/19 09:19 Florastor PO 250 mg DAILY ADELFO Administration Sodium Chloride 10 ml 05/12/19 09:00 05/13/19 11:36 Flush - Normal Saline IVF 10 ml Q12HR ADELFO Administration - Exam Eye: PERRL Heart: RRR, no murmur, no gallops, no rubs, normal peripheral pulses Respiratory: CTAB, no wheezes, no rales, no ronchi, normal chest expansion, no tachypnea, normal percussion Gastrointestinal: soft, non-tender, non-distended, normal bowel sounds, no palpable masses, no hepatomegaly Extremities: no cyanosis, no edema Hosp A/P (1) Perineal cyst in male Code(s): N50.89 - OTHER SPECIFIED DISORDERS OF THE MALE GENITAL ORGANS Status : Acute (2) DM2 (diabetes mellitus, type 2) Status: Chronic (3) HTN (hypertension) Code(s): I10 - ESSENTIAL (PRIMARY) HYPERTENSION Status: Chronic (4) Osteoarthritis Code(s): M19.90 - UNSPECIFIED OSTEOARTHRITIS, UNSPECIFIED SITE Status: Chronic - Plan * Perineal Abscess- culture from the aspiration is growing Strep, still awaiting sensitivities * Will re-start Clindamycin and add a * DM- blood glucose is stable * HTN-blood pressure is stable * Will await final culture results- this should be available by tomorrow
[2019-05-13] MEDS: Insulin Regular 300 UNITS/3 ML VIAL SC PRN ×2 (14:36→18:31)
[2019-05-13] MEDS ORDERED: Ondansetron PF 4 MG/2 ML Vial IVP PRN (19:33)
[2019-05-13] MEDS ORDERED: Morphine 10 MG/ML VIAL SLOW IVP SCH (19:45)
[2019-05-14] MEDS: Clindamycin 150 MG CAP PO SCH ×3 (00:04→11:13)
[2019-05-14] MEDS: Saccharomyces boulardii 250 MG CAP PO SCH (08:04)
[2019-05-14] MEDS: HYDROcodone/Acetaminophen 5/325 mg Tablet PO PRN (14:09)
[2019-05-14] MEDS ORDERED: Morphine 4 MG/ML VIAL SLOW IVP SCH (14:30)
--- NOTE | 2019-05-14 17:09 | PDOC.HOSPP ---
- Subjective Encounter Date: 05/14/19 Encounter Time: 17:07 Subjective: Mr. Hunter was seen today in follow-up of perineal abscess. He does not have any new complaints. - Objective Vital Signs & Weight: Vital Signs (12 hours) Temp Pulse Resp BP Pulse Ox 05/14/19 08:00 95 05/14/19 07:17 98.0 F 65 18 103/69 95 Weight Admit Weight 303 lb 1.6 oz Weight 303 lb 1.6 oz I&O: 05/13/19 05/14/19 05/15/19 06:59 06:59 06:59 Intake Total 1800 900 Output Total 3 Balance 1800 897 Result Diagrams: 05/13/19 05:08 05/11/19 22:30 Additional Labs: Accuchecks 05/14/19 05/14/19 05/14/19 16:19 11:26 04:40 POC Glucose 188 H 172 H 125 H 05/14/19 05/13/19 00:41 19:54 POC Glucose 152 H 205 H Hospitalist ROS - Medication Medications: Active Medications Generic Name Dose Route Start Last Admin Trade Name Freq PRN Reason Stop Dose Admin Hydrocodone Bitart/Acetaminophen 1 tab 05/12/19 15:02 05/14/19 14:09 Ardara 5/325 PO 1 tab Q4H PRN Administration Moderate Pain (4-6) Clindamycin HCl 300 mg 05/13/19 12:00 05/14/19 11:13 Cleocin PO 300 mg Q6HR ADELFO Administration Insulin Human Regular 0 units 05/12/19 01:58 05/13/19 18:31 Humulin R SC 2 unit .MILD SLIDING SCALE PRN Administration Mild Correctional Scale Saccharomyces Boulardii 250 mg 05/13/19 09:00 05/14/19 08:04 Florastor PO 250 mg DAILY ADELFO Administration Sodium Chloride 10 ml 05/12/19 09:00 05/14/19 08:05 Flush - Normal Saline IVF 10 ml Q12HR ADELFO Administration Tramadol HCl 50 mg 05/12/19 10:12 05/14/19 08:04 Ultram PO 50 mg Q6H PRN Administration Pain - Exam Eye: PERRL Heart: RRR, no murmur, no gallops, no rubs, normal peripheral pulses Respiratory: CTAB, no wheezes, no rales, no ronchi, normal chest expansion Gastrointestinal: soft, non-tender, non-distended, normal bowel sounds, no palpable masses Extremities: no cyanosis, no edema Hosp A/P (1) Perineal cyst in male Code(s): N50.89 - OTHER SPECIFIED DISORDERS OF THE MALE GENITAL ORGANS Status : Acute (2) DM2 (diabetes mellitus, type 2) Status: Chronic (3) HTN (hypertension) Code(s): I10 - ESSENTIAL (PRIMARY) HYPERTENSION Status: Chronic (4) Osteoarthritis Code(s): M19.90 - UNSPECIFIED OSTEOARTHRITIS, UNSPECIFIED SITE Status: Chronic - Plan * Perineal Abscess-he has had his wound re-dressed * Cultures are negative so far * He is stable for discharge home
[2019-05-14 17:42] VITALS: BP 129/87; TEMP 97.9
--- NOTE | 2019-05-14 17:47 | PRG ---
DATE OF SERVICE: 05/13/2019 SUBJECTIVE: The patient states he is still having some soreness in his right groin. He states it feels a little better than before. He is still also having back pain, which is a chronic issue for the patient. Denies any fevers. OBJECTIVE: VITAL SIGNS: Temperature 98.1, pulse 73, respirations 18, blood pressure 109/71, and saturations 95% on room air. GENERAL: No apparent distress. Communicative and alert. CARDIOVASCULAR: Regular rate and rhythm. ABDOMEN: Obese, soft, nontender, and nondistended. Positive bowel sounds. : Penis is circumcised, nonfocal. No edema. Scrotum shows reduction in erythema. There is incision still present, which is packed currently. The edema has also gone down somewhat. It is still somewhat sensitive and sore, but does look improved from prior to his I and D. ASSESSMENT AND PLAN: A 59-year-old white male with scrotal abscess, which was drained at bedside and packed. The patient is ongoing to have his wet-to-dry dressings by nursing staff and wound care while in the hospital. Cultures thus far demonstrate many gram-positive cocci in pairs and clusters with many gram-negative coccobacilli. Culture is currently in progress. I would recommend treatment with clindamycin to cover both gram-positives and negatives. Bactrim and clindamycin combination may be more efficacious. Once cultures are finalized, I think the patient can be discharged home with 7 to 10 days of antibiotics and will need to continue wet-to-dry dressing changes daily. He should follow up with me in the office in 1 week for wound check and to ensure that he is healing appropriately. Job ID: [id number]
--- NOTE | 2019-05-15 04:34 | DIS ---
DATE OF ADMISSION: 05/12/2019 DATE OF DISCHARGE: 05/14/2019 DISCHARGE DISPOSITION: Home. PRIMARY DISCHARGE DIAGNOSES: 1. Right perineal abscess. 2. Diabetes mellitus type 2. 3. Hypertension. 4. Osteoarthritis. DISCHARGE MEDICATIONS: Include; 1. Clindamycin 300 mg p.o. q.6 hours for 10 days. 2. Metformin 500 mg daily with meals. 3. Florastor 250 mg daily. 4. Aldactone 100 mg p.o. daily. 5. Protonix 40 mg daily. 6. Zofran 4 mg q.6 as needed. 7. Magnesium 250 mg as needed. 8. Lisinopril 10 mg daily. 9. Furosemide 40 mg daily. PROCEDURES DONE DURING ADMISSION: The patient had a CT of the abdomen and pelvis, which demonstrated a right-sided perineal abscess and there was evidence of cholelithiasis. The patient also had incision and drainage of the abscess. CODE STATUS: Full code. ALLERGIES: NO KNOWN DRUG ALLERGIES. HOSPITAL COURSE: Mr. Schumacher is a pleasant 59-year-old gentleman who was admitted to the hospital with right groin pain which had gotten persistently worse over the course of the days prior to admission, the full details of which are outlined in the history and physical. He was evaluated in the ER and found to have a right perineal abscess. He was admitted and started on IV antibiotics. Urology was consulted. He underwent I and D of the abscess and local wound care. Cultures were essentially negative. There was one culture that originally grew strep, but has since been now saying no growth. It was recommended that he be discharged either on Bactrim or clindamycin by his urologist. He was on clindamycin and responded well during his hospital stay to this antibiotic; therefore, we will continue this in the oral form and he will be discharged home to follow up with Dr. Cruz in a few days and also with his primary care physician. Job ID: [id number]
== END 2019-05-14 18:42 | disposition home or self-care (01) | DRG 580 ==
LOC: ERS 22:05 → T4-B 05-12 01:46
PROVIDERS: ADMIT Hospitalist; ATTEND Hospitalist
PROC: 0H99XZZ Drainage of Perineum Skin, External Approach (ICD-10-PCS; principal; 2019-05-12)
DX: L02.215 Cutaneous abscess of perineum (principal); K76.6 Portal hypertension; L72.8 Other follicular cysts of the skin and subcutaneous tissue; E11.9 Type 2 diabetes mellitus without complications; N49.2 Inflammatory disorders of scrotum; I10 Essential (primary) hypertension; M19.90 Unspecified osteoarthritis, unspecified site; K80.20 Calculus of gallbladder without cholecystitis without obstruction; D69.6 Thrombocytopenia, unspecified; F10.10 Alcohol abuse, uncomplicated; Z79.4 Long term (current) use of insulin; K74.60 Unspecified cirrhosis of liver
CPT/HCPCS: 36415; 36416; 74177; 80053; 83605; 85025; 85610; 87040; 87070; 87077; 87186; 87205; 96365; 96367; J1815; J2001; J2270; J2543; J3370; J3490; Q9967

== ENCOUNTER 2019-10-01 16:50 | Outpatient (CLI) | payer SELFPAY, OTHER ==
[2019-10-01 17:17] LABS: #Basophils 0.1 thou/uL (0.0-0.2); #Eosinphils 0.8 thou/uL (0.0-0.7); #Lymphocytes 2.1 thou/uL (1.20-3.40); #Monocytes 0.8 thou/uL (0.11-0.59); #Neutrophils 5.8 thou/uL (1.40-6.50); %Basophils 1.1 % (0.0-1.0); %Eosinophils 7.9 % (0.0-10.0); %Lymphocytes 21.6 % (21.0-51.0); %Monocytes 8.6 % (0.0-10.0); %Neutrophils 60.8 % (42.0-75.0); Hemoglobin 15.1 g/dL (14.0-18.0); Mean Corpuscular HGB CONC 36.3 g/dL (32.0-36.0); Mean Corpuscular Hemoglobin 34.5 pg (27.0-31.0); Mean Corpuscular Volume 95.1 fL (78.0-98.0); Mean Platelet Volume 8.3 fL (7.4-10.4); Platelet Count 104 thou/uL (130-400); RBC Distribution Width 13.1 % (11.5-14.5); Red Blood Cell (RBC) Count 4.37 mill/uL (4.70-6.10); White Blood Cell (WBC) Count 9.6 thou/uL (4.8-10.8)
[2019-10-01 17:33] LABS: ALT (SGPT) 27 U/L (8-55); AST (SGOT) 46 U/L (5-34); Albumin 3.6 g/dL (3.5-5.0); Alkaline Phosphatase 100 U/L (40-110); Anion Gap 17 mmol/L (10-20); BUN (Urea Nitrogen) 17 mg/dL (8.4-25.7); Bilirubin, Direct 0.9 mg/dL (0.1-0.3); Bilirubin, Total 5.1 mg/dL (0.2-1.2); Calc. Creatinine Clearance 0 mL/min (70-130); Calcium 9.1 mg/dL (7.8-10.44); Carbon Dioxide 18 mmol/L (22-29); Chloride 107 mmol/L (98-107); Estimated GFR-MDRD 88; Glucose 149 mg/dL (70-105); Protein, Total 6.9 g/dL (6.0-8.3); Sodium 138 mmol/L (136-145)
[2019-10-02 16:18] LABS: SARS-CoV-2 MS2 Positive; SARS-CoV-2 N Gene Negative; SARS-CoV-2 S Gene Negative; SARS-CoV-2 orf1ab Negative
== END 2019-10-01 16:51 | disposition home or self-care (01) ==
LOC: LABBT 16:50
PROVIDERS: ATTEND Surgery
DX: Z01.818 Encounter for other preprocedural examination (principal); Z11.59 Encounter for screening for other viral diseases; K80.20 Calculus of gallbladder without cholecystitis without obstruction
CPT/HCPCS: 80048; 80076; 85025; 87635; 93005; 93010; U0003

== ENCOUNTER 2019-10-03 07:32 | Inpatient (IN) | payer OTHER, SELFPAY ==
[2019-10-01 17:03] VITALS: BMI 41.8
[2019-10-03] MEDS ORDERED: Fentanyl 100 MCG/2 ML VIAL ONE ×5 (09:36→11:54)
[2019-10-03] MEDS ORDERED: Bupivacaine 0.25% HCL 30 ML VIAL ONE (09:38)
[2019-10-03] MEDS ORDERED: Iopamidol 50 ML FS ONE (09:38)
[2019-10-03] MEDS ORDERED: Lidocaine 1% w/Epinephrine 1:100K 20 ML VIAL ONE (09:38)
[2019-10-03] MEDS ORDERED: Morphine 4 MG/ML VIAL ONE (11:40)
[2019-10-03 11:53] LABS: INR-International Normal Ratio 1.3
[2019-10-03] MEDS ORDERED: Ondansetron PF 4 MG/2 ML Vial IVP PRN ×2 (11:57→12:01)
[2019-10-03] MEDS ORDERED: Calcium Carbonate 500 MG ChewTAB PO PRN (11:57)
[2019-10-03] MEDS ORDERED: Mag-Al 1200 mg/1200 mg/30 ML UDCUP PO PRN (11:57)
[2019-10-03] MEDS ORDERED: Dextrose 50% Abboject 50 ML SYRINGE SLOW IVP PRN (11:57)
[2019-10-03] MEDS ORDERED: Dextrose 5% in Water 1,000 ML IV PRN (11:57)
[2019-10-03] MEDS ORDERED: Morphine 4 MG/ML VIAL SLOW IVP PRN (11:57)
[2019-10-03] MEDS ORDERED: Promethazine HCl 25 MG/ML VIAL IM PRN ×2 (11:57→12:01)
[2019-10-03] MEDS ORDERED: hydrALAZINE 20 MG/ML VIAL SLOW IVP PRN (11:57)
[2019-10-03] MEDS ORDERED: HYDROcodone/Acetaminophen 7.5/325 mg Tablet PO PRN (11:57)
[2019-10-03] MEDS ORDERED: Morphine 2 MG/ML SYRINGE SLOW IVP PRN (11:57)
[2019-10-03] MEDS ORDERED: diphenhydrAMINE 50 MG/ML VIAL IVP PRN (12:01)
[2019-10-03] MEDS ORDERED: Naloxone HCl 0.4 mg/ml Vial IV PRN (12:01)
[2019-10-03] MEDS ORDERED: fentaNYL Citrate/PF 2,000 MCG in Sodium Chloride 0.9% 60 ML IV PRN (12:01)
[2019-10-03] MEDS ORDERED: Ketorolac Tromethamine 30 MG/ML VIAL IVP PRN (12:01)
[2019-10-03] MEDS ORDERED: Zolpidem Tartrate 5 MG TAB PO PRN (12:01)
[2019-10-03] MEDS ORDERED: diphenhydrAMINE 25 MG CAP PO PRN (12:01)
[2019-10-03] MEDS ORDERED: diphenhydrAMINE 50 MG/ML VIAL IM PRN (12:01)
[2019-10-03] MEDS ORDERED: Morphine 2 MG/ML SYRINGE ONE (12:05)
[2019-10-03] MEDS ORDERED: Communication Order-Pharmacy FS SCH (12:15)
[2019-10-03] MEDS ORDERED: PROPOFOL 200 MG/20 ML VIAL ONE (12:42)
[2019-10-03] MEDS ORDERED: Ketorolac Tromethamine 30 MG/ML VIAL ONE (12:42)
[2019-10-03] MEDS ORDERED: Ondansetron PF 4 MG/2 ML Vial ONE (12:42)
[2019-10-03] MEDS ORDERED: PHENYLEPHRINE-NS 100 MCG/ML 10 ML SYRINGE ONE (12:42)
[2019-10-03] MEDS ORDERED: Lidocaine 1% PF 5 ML VIAL ONE (12:42)
[2019-10-03] MEDS ORDERED: Rocuronium Bromide 10 MG/ML (10ML VIAL) ONE (12:42)
[2019-10-03] MEDS ORDERED: Glycopyrrolate 0.2 MG/ML 5 ML SYRINGE ONE (12:42)
[2019-10-03] MEDS: Sodium Chloride 0.9% 1,000 ML IV SCH (13:37)
--- NOTE | 2019-10-03 15:53 | OP ---
DATE OF PROCEDURE: 10/03/2019 PREOPERATIVE DIAGNOSIS: Acute cholecystitis. POSTOPERATIVE DIAGNOSIS: Acute cholecystitis. PROCEDURE PERFORMED: Laparoscopic subtotal cholecystectomy and drain placement. COMPLICATIONS: None. FINDINGS: Significant severe cholecystitis with inflamed inflammatory change down near the bile duct. Unable to perform cholangiogram. Unable to dissect around the cystic duct, so decision is made to do a subtotal. DESCRIPTION OF PROCEDURE: The patient was taken to the operating room, placed supine on the operating table. After general anesthetic was obtained, the abdomen was prepped and draped in a sterile fashion. An incision was made above the umbilicus. Cautery was used to dissect down to and score the fascia. Abdominal cavity was entered bluntly using a Velvet clamp. Holding stitch of PDS was placed on each side of the fascia. Sanjeev trocar was placed. High flow pneumoperitoneum was obtained. A midline 5 mm, 2 outer quadrant 5 mm ports were placed under direct visualization. The gallbladder was dissected from the gallbladder fossa. The peritoneum was opened anteriorly and posteriorly. In the area of the cystic duct, there was significant inflammatory and scarring. Due to the patient's severe nodular cirrhosis, this area could not be safely dissected out. The top of the gallbladder was removed. The back wall was left on the liver. A 19 round drain was brought out through a right upper quadrant incision, left in the hepatic bed. The gallbladder was placed in EndoCatch bag and brought out through the Sanjeev. Meticulous hemostasis is obtained. All port sites were infiltrated using local anesthetic. The right upper quadrant was irrigated out. All ports were removed under camera visualization. Pneumoperitoneum was let down. PDS was used to close the fascial defect above the umbilicus. All incisions were irrigated and closed using 4-0 Monocryl and Dermabond. The patient was sent to Recovery in stable condition. All instrument counts, needle counts and lap counts were correct. Job ID: [id number]
--- NOTE | 2019-10-03 16:42 | CON ---
DATE OF CONSULTATION: 10/03/2019 REASON FOR CONSULT: Management of cirrhosis. HISTORY OF PRESENT ILLNESS: Mr. Hunter is a pleasant 59-year-old gentleman who I have seen in the past, who has had a long history of gallstones and previously asymptomatic. Recently, he was admitted to [facility] in [place] for fever of unclear etiology. He did have some viral symptoms and some infiltrate but negative evaluation for COVID and flu. Ultimately, he was treated with broad-spectrum antibiotics before blood cultures could be obtained. He had complaints during the hospitalization of right upper quadrant pain radiating to his back as well as left hip pain and low back pain, the latter two which have been chronic for him. Evaluation with MRI revealed no evidence of diskitis or septic hip. HIDA scan at the hospitalization revealed nonfilling gallbladder, but there was uptake of contrast by the liver. As he has cirrhosis, we are trying to avoid cholecystectomy. He did go home on antibiotics to follow up in the outpatient a few weeks ago and was complaining of worsening right upper quadrant pain, resolution of his cough and URI symptoms. Additionally, his back and left hip pain had gone back to about baseline. He did see Dr. Cooney, who felt, as well as the patient felt as well, his pain was worsening more and more in the right upper quadrant with radiation to the back and known gallstones. Cholecystectomy was offered. He does have a history of cirrhosis that is well compensated with a platelet count of over 100,000, normal INR of 1.3, AST of 46, ALT of 25, bilirubin 0.9 direct, albumin of 3.6, and protein of 6.9. He underwent laparoscopic cholecystectomy today with Dr. Cooney. It was a difficult procedure. He did not have much in the way of portal hypertensive changes in the abdomen, but the liver was contracted over the gallbladder and a full cholecystectomy was not able to be performed secondary to bleeding and most of the gallbladder was removed, some was left in place and a drain was left in place. Dr. Cooney was concerned that the patient may be at risk for bile leak. He does have a LEA drain in place. The patient notes he is having some discomfort after surgery. It hurts to take a deep breath. He has had no fever or chills. He notes his edema has markedly gotten a lot better since he has been out of the hospital and restarted his diuretics. He is about to try to take clear liquids. He just came out of the OR just an hour or two ago. PAST MEDICAL HISTORY: 1. 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 2. Edema. 3. Chronic low back pain. 4. 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 5. Diabetes. PAST SURGICAL HISTORY: Multiple back surgeries. No recent cholecystectomy. MEDICATIONS: At home, 1. Metformin. 2. Spironolactone. 3. Lisinopril. 4. Glimepiride. 5. Furosemide. 6. Tylenol with Codeine. Medications here 1. Maalox. 2. DuoNeb. 3. Tums. 4. Pepcid. 5. Fentanyl p.r.n. 6. Lasix 40 daily. 7. Hydralazine p.r.n. 8. Insulin sliding scale. 9. Toradol q.6 hours p.r.n. for pain. 10. Lisinopril. 11. Naloxone p.r.n. 12. Zofran p.r.n. 13. Phenergan p.r.n. 14. Normal saline at 70 an hour. 15. Spironolactone 100 mg daily. FAMILY HISTORY: Negative for liver disease. SOCIAL HISTORY: Negative for alcohol, drugs, or tobacco at this time. He used to drink in the past. PHYSICAL EXAMINATION: GENERAL: He is resting comfortably in bed. He is alert and oriented to person, place, time. VITAL SIGNS: Temperature 97.3, pulse 71, respirations are 20, blood pressure 152/82. LUNGS: Clear. HEART: Regular without murmurs. ABDOMEN: Soft, slightly protuberant. There is no shifting dullness, fluid wave. There is a LEA drain in the right upper quadrant with serosanguineous drainage about [address] Cooney noted there was no overt ascites at the time of procedure. EXTREMITIES: 1+ edema in lower extremities. NEUROLOGIC: There is no overt asterixis. He is alert and oriented to person, place, time. LABORATORY DATA: Labs on 09/30, sodium 138, potassium 4, BUN and creatinine are 17 and 0.8. Liver function tests as per HPI. White count was 9.6, hemoglobin was 15, platelet count was 104. INR was 1.3 today. ASSESSMENT: 1. 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 Serologic workup was otherwise negative. 2. Recent hospitalization for febrile illness of unclear etiology, resolved. 3. Known gallstones in upper quadrant with worsening pain in upper quadrant in last 6 weeks. A HIDA scan with nonfilling of the gallbladder, status post laparoscopic cholecystectomy today. PLAN: 1. We will follow along with you. I would hold off on the Toradol for pain and use more of the Tylenol as it would be a risk to put him in hepatorenal failure. 2. We will keep on his diuretics for now, and watch his renal function. If there are any signs of renal compromise, we will hold those. 3. We will watch LEA output. If this becomes bilious, he would need an ERCP and stent. We will follow along with you. Job ID: [id number]
[2019-10-03] MEDS: Famotidine 20 MG TAB PO SCH (20:32)
[2019-10-03] MEDS: Famotidine/PF 20 mg/2ml Vial SLOW IVP SCH (20:36)
[2019-10-04] MEDS: Sodium Chloride 0.9% 1,000 ML IV SCH (03:42)
[2019-10-04 06:10] LABS: #Basophils 0.1 thou/uL (0.0-0.2); #Eosinphils 0.4 thou/uL (0.0-0.7); #Lymphocytes 1.4 thou/uL (1.20-3.40); #Monocytes 0.8 thou/uL (0.11-0.59); #Neutrophils 4.1 thou/uL (1.40-6.50); %Basophils 1.2 % (0.0-1.0); %Lymphocytes 21.3 % (21.0-51.0); %Monocytes 11.5 % (0.0-10.0); %Neutrophils 60.1 % (42.0-75.0); Hemoglobin 12.4 g/dL (14.0-18.0); Mean Corpuscular HGB CONC 36.8 g/dL (32.0-36.0); Mean Corpuscular Hemoglobin 35.2 pg (27.0-31.0); Mean Corpuscular Volume 95.7 fL (78.0-98.0); Mean Platelet Volume 8.2 fL (7.4-10.4); Platelet Count 70 thou/uL (130-400); RBC Distribution Width 12.8 % (11.5-14.5); Red Blood Cell (RBC) Count 3.53 mill/uL (4.70-6.10); White Blood Cell (WBC) Count 6.8 thou/uL (4.8-10.8)
[2019-10-04 06:20] LABS: ALT (SGPT) 24 U/L (8-55); AST (SGOT) 38 U/L (5-34); Albumin 2.9 g/dL (3.5-5.0); Alkaline Phosphatase 78 U/L (40-110); Anion Gap 10 mmol/L (10-20); BUN (Urea Nitrogen) 18 mg/dL (8.4-25.7); Bilirubin, Total 5.9 mg/dL (0.2-1.2); Calc. Creatinine Clearance 222 mL/min (70-130); Calcium 7.7 mg/dL (7.8-10.44); Carbon Dioxide 23 mmol/L (22-29); Chloride 105 mmol/L (98-107); Estimated GFR-MDRD Greater than 90; Globulin 2.4 g/dL (2.4-3.5); Glucose 89 mg/dL (70-105); Protein, Total 5.3 g/dL (6.0-8.3); Sodium 134 mmol/L (136-145)
[2019-10-04] MEDS: Famotidine/PF 20 mg/2ml Vial SLOW IVP SCH ×2 (09:56→20:49)
[2019-10-04] MEDS: Famotidine 20 MG TAB PO SCH ×2 (09:56→20:49)
[2019-10-04] MEDS: Furosemide 40 MG TAB PO SCH (09:56)
[2019-10-04] MEDS: Lisinopril 20 MG TAB PO SCH (09:56)
[2019-10-04] MEDS ORDERED: traMADol HCl 50 MG TAB PO PRN ×2 (10:08)
[2019-10-04] MEDS ORDERED: Fentanyl 100 MCG/2 ML VIAL SLOW IVP PRN ×2 (10:08)
[2019-10-04] MEDS: Spironolactone 100 MG TAB PO SCH (12:12)
[2019-10-04] MEDS: HYDROcodone/Acetaminophen 7.5/325 mg Tablet PO PRN ×2 (14:03→20:49)
--- NOTE | 2019-10-04 14:46 | PRG ---
DATE OF SERVICE: 10/04/2019 SUBJECTIVE: Mr. Hunter is still having some pain from his surgery. His swelling in his leg has not returned. His LEA output is serosanguineous. OBJECTIVE: VITAL SIGNS: Temperature 98, pulse 72, blood pressure 125/80. Weight is 326. He was 326 on the 3rd. LUNGS: Clear. HEART: Regular rate and rhythm. ABDOMEN: Nontender. There is no rebound. There is no guarding. LEA has serosanguineous fluid that is less thick today than yesterday. There is no bile tinge. LABORATORY DATA: White count 6.8, hemoglobin 12.5, platelet count 70,000. INR was 1.3 yesterday. Today, sodium 134, potassium 4, BUN and creatinine are 18 and 0.74, calcium 7.7. Bilirubin is 5.8 with 5.1 yesterday. Direct bilirubin was 0.9 on the 2nd. Albumin is 2.9. ASSESSMENT: Status post cholecystectomy. This is a difficult procedure and some of the gallbladder will be left behind. Dr. Cooney is concerned that the patient is at risk for bile leak. RECOMMENDATIONS: Continue strict in's and out's. Continue daily weights. Continue to monitor renal function closely. If there is worsening renal function, drop in urine output, would start him on albumin. If he develops any evidence of bilious fluid in his LEA drain, he will need an ERCP with stent. Dr. Alonso will be covering in my absence over the weekend. Job ID: [id number]
[2019-10-04] MEDS: Insulin Regular 300 UNITS/3 ML VIAL SC PRN (17:47)
[2019-10-05] MEDS: HYDROcodone/Acetaminophen 7.5/325 mg Tablet PO PRN ×2 (02:19→08:50)
[2019-10-05 05:58] LABS: #Basophils 0.1 thou/uL (0.0-0.2); #Eosinphils 0.5 thou/uL (0.0-0.7); #Lymphocytes 1.5 thou/uL (1.20-3.40); #Monocytes 0.8 thou/uL (0.11-0.59); #Neutrophils 3.5 thou/uL (1.40-6.50); %Basophils 1.3 % (0.0-1.0); %Eosinophils 7.2 % (0.0-10.0); %Lymphocytes 23.4 % (21.0-51.0); %Monocytes 12.3 % (0.0-10.0); %Neutrophils 55.8 % (42.0-75.0); Hemoglobin 12.2 g/dL (14.0-18.0); Mean Corpuscular HGB CONC 36.6 g/dL (32.0-36.0); Mean Corpuscular Hemoglobin 34.8 pg (27.0-31.0); Mean Platelet Volume 8.1 fL (7.4-10.4); Platelet Count 73 thou/uL (130-400); RBC Distribution Width 12.7 % (11.5-14.5); White Blood Cell (WBC) Count 6.2 thou/uL (4.8-10.8)
[2019-10-05 06:24] LABS: ALT (SGPT) 20 U/L (8-55); AST (SGOT) 31 U/L (5-34); Albumin 2.9 g/dL (3.5-5.0); Alkaline Phosphatase 77 U/L (40-110); Anion Gap 9 mmol/L (10-20); BUN (Urea Nitrogen) 15 mg/dL (8.4-25.7); Bilirubin, Direct 0.8 mg/dL (0.1-0.3); Calc. Creatinine Clearance 235 mL/min (70-130); Calcium 7.8 mg/dL (7.8-10.44); Carbon Dioxide 25 mmol/L (22-29); Chloride 103 mmol/L (98-107); Estimated GFR-MDRD Greater than 90; Glucose 134 mg/dL (70-105); Potassium 3.6 mmol/L (3.5-5.1); Protein, Total 5.3 g/dL (6.0-8.3); Sodium 133 mmol/L (136-145)
[2019-10-05] MEDS: Furosemide 40 MG TAB PO SCH (08:36)
[2019-10-05] MEDS: Lisinopril 20 MG TAB PO SCH (08:36)
[2019-10-05] MEDS: Famotidine/PF 20 mg/2ml Vial SLOW IVP SCH (08:37)
[2019-10-05] MEDS: Famotidine 20 MG TAB PO SCH (08:37)
[2019-10-05] MEDS: Spironolactone 100 MG TAB PO SCH (08:50)
[2019-10-05 11:13] VITALS: BP 98/65; TEMP 97.7
[2019-10-05] MEDS: Insulin Regular 300 UNITS/3 ML VIAL SC PRN (12:19)
--- NOTE | 2019-10-05 13:27 | PRG ---
DATE OF SERVICE: 10/05/2019 SUBJECTIVE: Endy Hunter is a 59-year-old male, status post fenestrated cholecystectomy due to cirrhosis and severe inflammation. LEA drain is serosanguineous. The patient has been instructed on drain care. He has prescription called to his pharmacy for analgesics. The patient is tolerating his diet, having bowel function. Dr. Alonso has seen him. His bilirubin is elevated, but at baseline levels considering his cirrhosis. OBJECTIVE: ABDOMEN: Soft and nontender. ASSESSMENT: Doing well. PLAN: Discharge home with LEA drain to report output, follow up with Dr. Cooney later this week for drain removal. Job ID: [id number]
--- NOTE | 2019-10-05 14:47 | PRG ---
DATE OF SERVICE: 10/05/2019 SUBJECTIVE: This 59-year-old male underwent laparoscopic cholecystectomy with a T-tube drainage after surgery. Apparently, surgery was difficult. However, the gallbladder was stuck to the liver fossa. The patient had a J-tube drainage for liver bed. This actually is draining some serosanguineous fluid. The patient is tolerating a diet. He is not having nausea or vomiting lately. He has some abdominal pain off and on. OBJECTIVE: GENERAL: He is obese, appears comfortable. VITAL SIGNS: Afebrile, temperature 97.9 degrees Fahrenheit, pulse is 71, blood pressure 132/80. CARDIOVASCULAR: Normal heart sounds. LUNGS: Clear to auscultation. ABDOMEN: Distended, but soft. Abdomen is nontender. The J-tube drainage basically shows serosanguineous fluid, very minimal. The patient was seen along with Dr. Parekh and Dr. Parekh feels that he can be discharged home today and he will follow up with Dr. Jose Cooney. Job ID: [id number]
== END 2019-10-05 15:50 | disposition home or self-care (01) | DRG 418 ==
LOC: SDC 07:32 → SURG A 11:04 → OBSVTOIN 11:04
PROVIDERS: ADMIT Surgery; ATTEND Surgery
PROC: 0FT44ZZ Resection of Gallbladder, Percutaneous Endoscopic Approach (ICD-10-PCS; principal; 2019-10-03)
DX: K81.0 Acute cholecystitis (principal); Z68.41 Body mass index [BMI] 40.0-44.9, adult; I10 Essential (primary) hypertension; E66.9 Obesity, unspecified; K74.60 Unspecified cirrhosis of liver; G89.29 Other chronic pain; M16.0 Bilateral primary osteoarthritis of hip; E11.9 Type 2 diabetes mellitus without complications
CPT/HCPCS: 36415; 36416; 76000; 80048; 80053; 80076; 85025; 85610; 88304; J0690; J1200; J1815; J1885; J2001; J2270; J2405; J2704; J3010; J3490; Q9967; S0020; S0028

== ENCOUNTER 2019-10-11 10:11 | Emergency (ER) | payer OTHER, SELFPAY ==
[2019-10-11] MEDS ORDERED: Ondansetron PF 4 MG/2 ML Vial ONE (10:35)
[2019-10-11 10:42] LABS: #Basophils 0.1 thou/uL (0.0-0.2); #Eosinphils 0.5 thou/uL (0.0-0.7); #Lymphocytes 1.4 thou/uL (1.20-3.40); #Monocytes 0.7 thou/uL (0.11-0.59); #Neutrophils 4.7 thou/uL (1.40-6.50); %Basophils 1.2 % (0.0-1.0); %Eosinophils 7.1 % (0.0-10.0); %Lymphocytes 19.4 % (21.0-51.0); %Monocytes 8.8 % (0.0-10.0); %Neutrophils 63.5 % (42.0-75.0); Hemoglobin 13.9 g/dL (14.0-18.0); Mean Corpuscular HGB CONC 36.3 g/dL (32.0-36.0); Mean Corpuscular Hemoglobin 34.2 pg (27.0-31.0); Mean Corpuscular Volume 94.2 fL (78.0-98.0); Mean Platelet Volume 8.3 fL (7.4-10.4); Platelet Count 112 thou/uL (130-400); RBC Distribution Width 12.7 % (11.5-14.5); Red Blood Cell (RBC) Count 4.06 mill/uL (4.70-6.10); White Blood Cell (WBC) Count 7.4 thou/uL (4.8-10.8)
[2019-10-11 11:03] LABS: ALT (SGPT) 20 U/L (8-55); AST (SGOT) 36 U/L (5-34); Albumin 3.2 g/dL (3.5-5.0); Alkaline Phosphatase 90 U/L (40-110); Anion Gap 12 mmol/L (10-20); BUN (Urea Nitrogen) 24 mg/dL (8.4-25.7); Bilirubin, Total 4.7 mg/dL (0.2-1.2); Calc. Creatinine Clearance 0 mL/min (70-130); Calcium 8.7 mg/dL (7.8-10.44); Carbon Dioxide 25 mmol/L (22-29); Chloride 103 mmol/L (98-107); Estimated GFR-MDRD 70; Globulin 2.9 g/dL (2.4-3.5); Glucose 104 mg/dL (70-105); Potassium 3.9 mmol/L (3.5-5.1); Protein, Total 6.1 g/dL (6.0-8.3); Sodium 136 mmol/L (136-145)
== END 2019-10-11 13:36 | disposition home or self-care (01) ==
LOC: ERS 10:11
DX: R55 Syncope and collapse (principal); E11.9 Type 2 diabetes mellitus without complications; I10 Essential (primary) hypertension; Z87.891 Personal history of nicotine dependence; Z79.84 Long term (current) use of oral hypoglycemic drugs; Z79.899 Other long term (current) drug therapy
CPT/HCPCS: 80053; 84484; 85025; 93005; 96361; 96374; J2405

== ENCOUNTER 2019-11-01 10:58 | Inpatient (IN) | payer OTHER ==
[2019-11-01 12:09] LABS: ALT (SGPT) 30 U/L (8-55); AST (SGOT) 42 U/L (5-34); Albumin 3.3 g/dL (3.5-5.0); Alkaline Phosphatase 90 U/L (40-110); Anion Gap 16 mmol/L (10-20); BUN (Urea Nitrogen) 25 mg/dL (8.4-25.7); Bilirubin, Total 3.6 mg/dL (0.2-1.2); Calc. Creatinine Clearance 0 mL/min (70-130); Calcium 8.8 mg/dL (7.8-10.44); Carbon Dioxide 18 mmol/L (22-29); Chloride 104 mmol/L (98-107); Estimated GFR-MDRD 65; Globulin 2.9 g/dL (2.4-3.5); Glucose 118 mg/dL (70-105); Potassium 5.6 mmol/L (3.5-5.1); Protein, Total 6.2 g/dL (6.0-8.3); Sodium 132 mmol/L (136-145)
[2019-11-01 12:15] LABS: #Basophils 0.1 thou/uL (0.0-0.2); #Eosinphils 0.2 thou/uL (0.0-0.7); #Lymphocytes 0.5 thou/uL (1.20-3.40); #Monocytes 1.3 thou/uL (0.11-0.59); #Neutrophils 12.1 thou/uL (1.40-6.50); %Basophils 0.4 % (0.0-1.0); %Eosinophils 1.4 % (0.0-10.0); %Lymphocytes 3.8 % (21.0-51.0); %Monocytes 9.3 % (0.0-10.0); Hemoglobin 12.8 g/dL (14.0-18.0); Mean Corpuscular HGB CONC 35.1 g/dL (32.0-36.0); Mean Corpuscular Hemoglobin 33.5 pg (27.0-31.0); Mean Corpuscular Volume 95.3 fL (78.0-98.0); Mean Platelet Volume 8.5 fL (7.4-10.4); Platelet Count 80 thou/uL (130-400); RBC Distribution Width 12.3 % (11.5-14.5); Red Blood Cell (RBC) Count 3.84 mill/uL (4.70-6.10); White Blood Cell (WBC) Count 14.3 thou/uL (4.8-10.8)
[2019-11-01] MEDS ORDERED: Pantoprazole 40 MG VIAL ONE (12:51)
[2019-11-01 12:53] LABS: INR-International Normal Ratio 1.2; PTT 37.2 sec (22.9-36.1); Prothrombin Time 15.3 sec (12.0-14.7)
--- NOTE | 2019-11-01 14:12 | ULT ---
RIGHT UPPER QUADRANT ULTRASOUND: DATE: 11/01/2019. PROVIDED CLINICAL HISTORY: Right upper quadrant pain. FINDINGS: Comparison 05/04/2019. Evaluation is limited by patient body habitus. The visualized portions of the pancreas appear normal. The liver appears echogenic without evidence for mass or intrahepatic biliar y ductal dilatation. The common duct is not dilated. The gallbladder demonstrates multiple mobile e chogenic foci compatible with gallstones. The gallbladder wall appears thickened. The biomedical engineering professor d escribes a positive sonographic Hairston's sign. The right kidney appears grossly normal. IMPRESSION: Limited study due to patient body habitus. Findings compatible with cholelithiasis and gallbladder w all thickening with a described positive sonographic Hairston's sign. Correlate with concerns for acut e cholecystitis. POS: MORGAN
[2019-11-01 14:31] LABS: Potassium 3.3 mmol/L (3.5-5.1)
[2019-11-01] MEDS ORDERED: Acetaminophen 650 MG Suppository PR PRN (14:33)
[2019-11-01] MEDS ORDERED: Ondansetron PF 4 MG/2 ML Vial IVP PRN (14:33)
[2019-11-01] MEDS ORDERED: Ondansetron ODT 4 MG TAB PO PRN (14:33)
[2019-11-01] MEDS ORDERED: Acetaminophen 325 MG TAB PO PRN (14:33)
[2019-11-01] MEDS ORDERED: Pantoprazole 80 MG in Sodium Chloride 0.9% 100 ML IVP SCH (14:45)
[2019-11-01] MEDS ORDERED: Dextrose 5% in Water 1,000 ML IV PRN (14:56)
[2019-11-01] MEDS ORDERED: HumaLOG 300 UNITS/3 ML VIAL SC PRN (14:56)
[2019-11-01] MEDS ORDERED: Dextrose 50% Abboject 50 ML SYRINGE SLOW IVP PRN (14:56)
[2019-11-01 15:17] LABS: Hemoglobin 12.7 g/dL (14.0-18.0)
[2019-11-01 15:31] LABS: Lactic Acid 1.7 mmol/L (0.5-2.2)
[2019-11-01] MEDS ORDERED: Magnesium Sulfate 4 GM in Sodium Chloride 0.9% 250 ML 250 ML IVPB SCH (15:45)
[2019-11-01] MEDS: Dextrose 5 %-0.45 % NaCl 1,000 ML IV SCH (15:49)
--- NOTE | 2019-11-01 15:50 | HP ---
TIME OF ASSESSMENT: 0200 hours. PRIMARY CARE PHYSICIAN: Dr. Robert Sanderson. CHIEF COMPLAINT: Abdominal pain and blood in the stool. HISTORY OF PRESENT ILLNESS: Mr. Hunter is a pleasant 59-year-old gentleman, who presents to the emergency department due to recurring blood in the stools since yesterday. The patient states he had blood in the stool for 3 to 4 days, that then resolved within the last week. He discussed with Dr. Reza, who advised him if the bleeding recurred, to come into the emergency department. He states blood is mixed in with the stool, and when he stands to wipe, he has blood that drips on the seat. Also, sees blood when wiping. He has had a couple of loose stools, which appeared black in color. The patient states he was recently started on lactulose by Dr. Reza due to issues with constipation. The patient reports having issues with hemorrhoids in the past, but has not bled like this before. Denies any hematemesis, but did have one episode of vomiting in the last week. He has been experiencing right upper quadrant discomfort ever since he had surgery in September for his gallbladder. He had been admitted with acute cholecystitis and underwent a laparoscopic subtotal cholecystectomy with drain placement on October 03, 2019. The patient states the discomfort is in the right upper quadrant and constant, which he rates 6/10 in severity. With palpation on certain movements, the pain becomes more intense up to a 9/10 in severity. He states it will, at times, radiate to his back. He also reports having issues with left hip pain, for which Dr. Cooney advised steroid injections. He states he feels as if his left hip is burning and hot. He states that he feels the skin become hot as well. He complains of feeling feverish, but has not checked his temperature. He has been afebrile while here in the emergency department. He denies having any headaches or dizziness. No chest pain, palpitations, or shortness of breath. He does report long-standing epigastric discomfort associated with reflux, but denies any of that pain at present. He denies having any urinary symptoms. All other review of systems are negative. ED COURSE: In the emergency department, the patient had laboratory studies done, which showed a white count of 14.3, hemoglobin 12.8, hematocrit 36.6, platelets 80, neutrophils 12.1. PT 15.3, INR 1.2, PTT 37.2. Sodium 132, potassium 5.6, when rechecked, it was 3.3. BUN 25, creatinine 1.15, GFR 65, glucose 118, calcium 8.8, total bilirubin was 3.6. AST 42, ALT 30, alkaline phosphatase 90, albumin 3.3. The patient has undergone a gallbladder ultrasound demonstrating limited study due to body habitus. However, findings compatible with cholelithiasis and gallbladder wall thickening. Positive sonographic Hairston sign. In the ED, he received 80 mg of Protonix IV and was given 1 L of normal saline. His blood pressure has been on the lower side from 102 to 116 systolic. He is being admitted for GI bleed. Consultation was placed for Dr. Reza (Gastroenterology). ALLERGIES: NO KNOWN DRUG ALLERGIES. CURRENT MEDICATIONS: 1. Metformin. 2. Glimepiride. 3. Lisinopril. 4. Hydrocodone/acetaminophen. 5. Lasix. 6. Spironolactone. 7. Tylenol with Codeine. PAST MEDICAL HISTORY: 1. Type 2 diabetes mellitus. 2. Hypertension. 3. Liver cirrhosis. 4. Obesity. 5. Chronic back pain. PAST SURGICAL HISTORY: 1. Back surgery. 2. Shoulder surgery. 3. Subtotal cholecystectomy with drain placement in September 2019. SOCIAL HISTORY: The patient lives with a friend. He is fully independent. Denies any alcohol consumption or illicit drug use. Denies any current tobacco use. He does report chewing tobacco in the past. FAMILY HISTORY: Noncontributory. PHYSICAL EXAMINATION: GENERAL: The patient appears well developed, well nourished, obese, in no acute distress. VITAL SIGNS: Temperature 98.7, blood pressure 109/68, pulse 88, respirations 18, O2 saturation 99% on room air. HEENT: Normocephalic and atraumatic. Pupils are equal, round, and reactive to light. Sclerae without icterus. Oropharynx clear. NECK: Supple. LUNGS: Clear to auscultation bilaterally without any wheezes, rales, or rhonchi. CARDIAC: Regular rate and rhythm. ABDOMEN: Soft, obese, right upper quadrant discomfort with light palpation. No rigidity. No renal angle tenderness. EXTREMITIES: No lower extremity swelling or edema. He does have several varicose veins. Peripheral pulses strong and equal bilaterally. SKIN: Warm and pale in color. Left hip region without any notable erythema or swelling. No concern for cellulitis. NEUROLOGIC: Alert and oriented x3. No neuro deficits on exam. INVESTIGATIONS: As mentioned above in the HPI. IMPRESSION AND PLAN: Mr. Hunter is a pleasant 59-year-old gentleman, who is being admitted for management of the following. 1. Gastrointestinal bleed. Hemoglobin checked this morning was 12.8. We will continue to monitor hemoglobin and hematocrit. He was given Protonix 80 mg IV in the emergency department. We will go ahead and place him on a Protonix drip. Consult has already been placed to Dr. Reza of Gastroenterology. The patient will be kept n.p.o. awaiting our GI review. The patient denies ever undergoing any endoscopic procedures. 2. Hypotension. Blood pressure on the lower side despite IV fluids. We will continue gentle hydration, as he does have history of fluid retention. We will add BNP to his labs. Continue to monitor blood pressure. We will hold antihypertensives. 3. Right upper quadrant abdominal pain. Gallbladder ultrasound notable for cholelithiasis. The patient had a subtotal cholecystectomy in September. Given slightly elevated white count with the patient feeling feverish, we will go ahead and treat for possible acute cholecystitis. Zosyn to be started as per discussion with Dr. Patterson. Further management per GI team. 4. Diabetes mellitus. Given the patient will remain n.p.o., we will give D5 half-normal saline and monitor blood glucose. Insulin sliding scale initiated. 5. Cirrhosis. Continue to monitor LFTs. 6. Gastrointestinal prophylaxis. As mentioned, the patient will be on Protonix drip. 7. Deep venous thrombosis prophylaxis. Mechanical SCDs. Given bleeding, pharmacoprophylaxis is contraindicated. 8. Code status, full. Surrogate decision maker according to the patient is his sister, Edna Rutherford. The patient's case discussed with attending, who agrees with plan of care as described above. Job ID: [id number]
[2019-11-01] MEDS ORDERED: Piperacillin/Tazobactam 3.375 GM in Sodium Chloride 0.9% 100 ML IVPB SCH (16:00)
[2019-11-01 16:10] VITALS: BMI 39.0
[2019-11-01 16:39] LABS: Bacteria/HPF None Seen HPF (None Seen); Bilirubin Negative (Negative); Blood, Urine Negative (Negative); Clarity Clear (Clear); Glucose, Urine (Dipstick) Normal (Negative); Ketone, Urine Negative (Negative); Leukocyte Negative Leu/uL (Negative); Nitrite Negative (Negative); Protein, Urine (Dipstick) Negative (Neg-Trace); RBC/HPF 0-3 HPF (0-3); Specific Gravity, Urine 1.004 (1.002-1.036); Squamous Epithelial None Seen HPF (0-3); Urobilinogen Normal mg/dL (Less than 2); WBC/HPF None Seen HPF (0-3)
[2019-11-01 16:44] LABS: Urine Culture Reflex No No
[2019-11-01] MEDS ORDERED: GoLYTELY 4,000 ml Bottle PO SCH (17:15)
[2019-11-01] MEDS ORDERED: cefTRIAXone\\ROCEPHIN 1 GM in Sodium Chloride 0.9% 100 ML IVPB SCH (18:00)
[2019-11-01 19:06] LABS: Hemoglobin 12.5 g/dL (14.0-18.0)
[2019-11-01] MEDS ORDERED: Sodium Chloride 0.9% 500 ML IV SCH (19:15)
[2019-11-01 20:20] LABS: Anion Gap 15 mmol/L (10-20); Carbon Dioxide 16 mmol/L (22-29); Chloride 109 mmol/L (98-107); Magnesium 1.8 mg/dL (1.6-2.6); Potassium 4.8 mmol/L (3.5-5.1); Sodium 135 mmol/L (136-145)
--- NOTE | 2019-11-01 21:06 | RAD ---
EXAM: CHEST ONE VIEW HISTORY: Baseline evaluation. Right upper quadrant abdominal pain. COMPARISON: 09/04/2019. FINDINGS: The cardiac silhouette and pulmonary vasculature is within normal limits. The lungs are clear. There has been resolution of the interstitial prominence noted on the prior exam. No other interval change. IMPRESSION: No acute cardiopulmonary process.
[2019-11-02 01:36] LABS: Hemoglobin 11.5 g/dL (14.0-18.0)
[2019-11-02 04:35] LABS: #Eosinphils 0.3 thou/uL (0.0-0.7); #Monocytes 0.7 thou/uL (0.11-0.59); #Neutrophils 4.7 thou/uL (1.40-6.50); %Basophils 0.5 % (0.0-1.0); %Eosinophils 4.1 % (0.0-10.0); %Lymphocytes 14.3 % (21.0-51.0); %Monocytes 10.6 % (0.0-10.0); %Neutrophils 70.5 % (42.0-75.0); Hemoglobin 11.6 g/dL (14.0-18.0); Mean Corpuscular HGB CONC 35.3 g/dL (32.0-36.0); Mean Corpuscular Hemoglobin 33.6 pg (27.0-31.0); Mean Corpuscular Volume 95.3 fL (78.0-98.0); Platelet Count 61 thou/uL (130-400); RBC Distribution Width 12.4 % (11.5-14.5); Red Blood Cell (RBC) Count 3.45 mill/uL (4.70-6.10); White Blood Cell (WBC) Count 6.7 thou/uL (4.8-10.8)
[2019-11-02 04:38] LABS: ALT (SGPT) 26 U/L (8-55); AST (SGOT) 36 U/L (5-34); Alkaline Phosphatase 81 U/L (40-110); Anion Gap 13 mmol/L (10-20); BUN (Urea Nitrogen) 20 mg/dL (8.4-25.7); Bilirubin, Total 3.8 mg/dL (0.2-1.2); Calc. Creatinine Clearance 169 mL/min (70-130); Calcium 8.4 mg/dL (7.8-10.44); Carbon Dioxide 18 mmol/L (22-29); Chloride 108 mmol/L (98-107); Estimated GFR-MDRD 85; Globulin 2.6 g/dL (2.4-3.5); Glucose 95 mg/dL (70-105); Lipase 63 U/L (8-78); Potassium 4.5 mmol/L (3.5-5.1); Protein, Total 5.6 g/dL (6.0-8.3); Sodium 134 mmol/L (136-145)
--- NOTE | 2019-11-02 06:16 | CON ---
DATE OF CONSULTATION: REASON FOR CONSULTATION: Rectal bleeding. HISTORY OF PRESENT ILLNESS: Mr. Hunter is a 59-year-old gentleman, known to me with cirrhosis from fatty liver, alcohol and non-alcohol related. He was in the hospital about a month ago at [facility] for high fever, respiratory illness, but tested negative for COVID and viral serologies at that time. He had evaluation with MRI of his back and hip as he has chronic pain there to make sure he does not appear to be septic or did not have a diskitis and these were negative. More recently, he was in this hospital with right upper quadrant pain going to his back and had gallstones and underwent cholecystectomy. He did well from that with no signs of bile leak and has recovered. He reports that he came to the emergency room today as he felt just cold at home, like maybe he had a chill, he had no sweats, no overt fever when he checked his temperature. He had no fever on arrival here. He is also having some vague right upper quadrant pain. Still has hip pain and back pain. The main reason the ER wanted to admit him is he reported four days of maroon-colored stool and bowel movements. Recently in the office, he was having issues with confusion per his sister, he was started on lactulose. He states he could not tolerate it, so he stopped it. He had no dysuria, frequency, urgency, cough, rigors, chills, myalgias, or arthralgias. PAST MEDICAL HISTORY: Diabetes type 2, cirrhosis, hypertension, chronic back pain, chronic arthritic changes in the hips bilaterally. PAST SURGICAL HISTORY: Cholecystectomy, multiple back surgeries. MEDICATIONS: At home; 1. Metformin 1000 b.i.d. 2. Aldactone 100 mg daily. 3. Lasix 40 mg dily. 4. Hydrocodone p.r.n. 5. Lisinopril 10 mg daily. 6. Glimepiride mg a day. 7. with codeine. 8. He was supposed to have lactulose, but he stopped that. Medications here; 1. Tylenol. 2. D5 half-normal. 3. Insulin sliding scale. 4. Magnesium sulfate 4 grams for low magnesium in the ER. 5. Protonix 80 mg drip. 6. Zosyn. PHYSICAL EXAMINATION: VITAL SIGNS: Temperature is 97, pulse 72, blood pressure is 104/49. GENERAL: He is resting comfortably in bed. He is in no distress. HEENT: Oropharynx, without lesions. NECK: Supple. No lymphadenopathy. LUNGS: Clear. HEART: Regular rate and rhythm without clicks or murmurs. ABDOMEN: Soft and nontender without rebound or guarding. He complains of right upper quadrant pain, but there is no tenderness in right upper quadrant. EXTREMITIES: No clubbing, cyanosis, or edema. LABORATORY DATA: White count 14,000. Hemoglobin 12.8 and 12.7, repeat at 1500 hours. Platelet count 80,000. INR 1.2. Sodium 132. Potassium 3.3, it was 5.6 on admission, repeat 3.3. Bicarb 18, chloride 104, BUN 25, creatinine 1.15. The creatinine is up from baseline of around 1 to 0.8. Bilirubin is 3.6 total, AST is 42, ALT is 30, alkaline phosphatase is 90, albumin 3.3, total protein 6.2, magnesium is 0.8. Lactic acid is 1.7. Lipase is 49. Urinalysis was negative. COVID-19 on 10/01/2019 was negative and 09/02/2019 was negative. ASSESSMENT: 1. Rectal bleeding for 3 to 4 days. He has been treating this as hemorrhoids without improvement. He is cirrhotic. He could have varices. His hemoglobin seems stable. He has not had any endoscopies. There is a vague history of rectal cancer in his family, although he is not sure if it is prostate or rectal. 2. 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 3. Status post recent cholecystectomy with no signs of bile leak or complications from that surgery. 4. Mild leukocytosis with complaints of feeling cold, but no chills or fever. He has been started empirically on antibiotics. 5. Hypokalemia, resolved. 6. Elevated BUN and creatinine, probably a component of dehydration. RECOMMENDATIONS: 1. Continue IV fluids. 2. EGD and colonoscopy tomorrow. 3. Stop the Zosyn. If he spikes a fever, get cultures. If he were to spike fever or become ill, he will need COVID testing before he can have any endoscopies. We will follow along with you. Job ID: [id number]
[2019-11-02] MEDS ORDERED: PROPOFOL 200 MG/20 ML VIAL ONE (13:42)
[2019-11-02] MEDS ORDERED: Promethazine HCl 25 MG/ML VIAL IM PRN (15:00)
[2019-11-02] MEDS ORDERED: Promethazine HCl 25 MG/ML VIAL SLOW IVP PRN (15:00)
[2019-11-02] MEDS ORDERED: Ondansetron HCl/PF 4 MG/2 ML Vial IVP PRN (15:00)
--- NOTE | 2019-11-02 18:37 | PDOC.HOSPP ---
- Subjective Encounter Date: 11/02/19 Encounter Time: 18:36 Subjective: Mr. Hunter was seen today in follow-up of Abdominal pain and GI bleed. He has returned from EGD and Colonoscopy. - Objective Vital Signs & Weight: Vital Signs (12 hours) Temp Pulse Resp BP BP Pulse Ox 11/02/19 18:32 96.0 F L 66 18 140/63 96 11/02/19 16:00 97.7 F 61 16 122/59 L 100 11/02/19 08:00 96 11/02/19 07:41 96.8 F L 66 16 101/55 L 97 Weight Weight 304 lb 8 oz I&O: 11/01/19 11/02/19 11/03/19 06:59 06:59 06:59 Intake Total 1150 540 Output Total 1300 850 Balance -150 -310 Result Diagrams: 11/02/19 03:31 11/02/19 03:31 Additional Labs: Accuchecks 11/02/19 11/02/19 11/02/19 17:04 06:02 01:14 POC Glucose 149 H 120 H 94 Hospitalist ROS - Medication Medications: Active Medications Generic Name Dose Route Start Last Admin Trade Name Freq PRN Reason Stop Dose Admin Ondansetron HCl 4 mg 11/01/19 14:33 11/02/19 15:52 Zofran IVP 4 mg Q6H PRN Administration Nausea/Vomiting Sodium Chloride 10 ml 11/01/19 14:33 11/02/19 15:53 Flush - Normal Saline IVF 10 ml PRN PRN Administration Saline Flush - Exam Eye: PERRL, anicteric sclera Heart: RRR, no murmur, no gallops, no rubs Respiratory: CTAB, no wheezes, no ronchi, normal chest expansion Gastrointestinal: soft (+ RUQ tenderness, no rebound or gaurding) Extremities: no cyanosis, no edema Hosp A/P (1) Abdominal pain Code(s): R10.9 - UNSPECIFIED ABDOMINAL PAIN Status: Acute (2) DM2 (diabetes mellitus, type 2) Status: Chronic (3) HTN (hypertension) Code(s): I10 - ESSENTIAL (PRIMARY) HYPERTENSION Status: Chronic - Plan * Abdominal pain- ? etiology * HTN- blood pressure is stable * GI- Bleed- await colonoscopy findings * Cirrhosis- continue prophylaxis with Rocephin * DM- stable
[2019-11-02] MEDS: Dextrose 5 %-0.45 % NaCl 1,000 ML IV SCH (19:28)
--- NOTE | 2019-11-02 20:57 | OP ---
DATE OF PROCEDURE: 11/02/2019 PROCEDURE PERFORMED: Esophagogastroduodenoscopy and colonoscopy with banding of varices in the esophagus.. PRE-PROCEDURE DIAGNOSES: 1. Intermittent rectal bleeding. 2. History of cirrhosis. 3. Persistent right upper quadrant pain, status post cholecystectomy. The cholecystectomy was partial per General Surgery as he had adhesions, inflammation, and portal hypertensive changes in the danilo hepatis precluding complete removal of the gallbladder. POSTPROCEDURE DIAGNOSES: 1. Grade 3 varices, 2 columns with red ted, but no signs of recent bleeding due to the fact he is diabetic and is high risk for variceal bleeding and is borderline for the use of beta blockers, banding was performed x4. 2. Normal stomach. 3. Normal duodenum to the third portion. 4. Colonoscopy notable for rectal varices, nonbleeding internal hemorrhoids, likely source of bleeding and was otherwise normal. RECOMMENDATIONS: 1. Nadolol 20 mg p.o. daily. 2. High-fiber diet daily. 3. Patient needs to massively lose weight to decrease portal hypertension, reduce risk of variceal hemorrhage. 4. Patient, according to General Surgery, is not a candidate for any further surgeries in his gallbladder region despite the ultrasound showing stones in this area. ANESTHESIA: TIVA. PROCEDURE IN DETAIL: After the patient was informed of the risks, benefits, and possible complications of endoscopy including perforation, reaction to medication, and aspiration, informed consent was obtained. The patient was brought to endoscopy suite, where he was sedated in a gradual fashion. Once he was comfortable, a bite block was placed inside the orifice. The endoscope was advanced through the esophagus, stomach, and second and third portions of the duodenum and slowly removed. The duodenum and stomach were normal. The stomach was normal in retroflexed views. No evidence of gastric varices. There were two columns of grade 3 esophageal varices with early red ted signs. Decision was made to band these for ablation. They did not show any stigmata of bleeding nor do I think that he had any variceal bleeding for this admission from the esophagus. Four bands were placed and the scope was removed. The patient was turned to the room. A rectal exam was performed. There was no blood in the vault. The endoscope was advanced to the anal canal through the colon. The cecum was identified by the ileocecal valve and the appendiceal orifice. There were no polyps, masses, or lesions. There was no bleeding or old blood noted. Retroflexed views in the rectum revealed internal hemorrhoids and also rectal varices. No signs of bleeding. The scope was removed. The patient tolerated the procedure well. No complications. Job ID: [id number]
[2019-11-03 06:30] LABS: ALT (SGPT) 27 U/L (8-55); AST (SGOT) 35 U/L (5-34); Albumin 3.1 g/dL (3.5-5.0); Alkaline Phosphatase 82 U/L (40-110); Anion Gap 10 mmol/L (10-20); BUN (Urea Nitrogen) 15 mg/dL (8.4-25.7); Bilirubin, Total 3.3 mg/dL (0.2-1.2); Calc. Creatinine Clearance 150 mL/min (70-130); Calcium 8.2 mg/dL (7.8-10.44); Carbon Dioxide 24 mmol/L (22-29); Chloride 108 mmol/L (98-107); Estimated GFR-MDRD 74; Globulin 2.6 g/dL (2.4-3.5); Glucose 111 mg/dL (70-105); Protein, Total 5.7 g/dL (6.0-8.3); Sodium 138 mmol/L (136-145)
[2019-11-03 07:42] LABS: Eosinophils 5 % (0-10); Hemoglobin 11.1 g/dL (14.0-18.0); Lymphocytes 18 % (21-51); MDiff Complete? YES; Mean Corpuscular HGB CONC 35.1 g/dL (32.0-36.0); Mean Corpuscular Hemoglobin 33.2 pg (27.0-31.0); Mean Corpuscular Volume 94.5 fL (78.0-98.0); Mean Platelet Volume 8.6 fL (7.4-10.4); Monocytes 5 % (0-10); Neutrophil 72 % (42-75); Platelet Count 69 thou/uL (130-400); RBC Distribution Width 12.4 % (11.5-14.5); Red Blood Cell (RBC) Count 3.34 mill/uL (4.70-6.10); White Blood Cell (WBC) Count 7.6 thou/uL (4.8-10.8)
--- NOTE | 2019-11-03 11:15 | PDOC.HOSPP ---
- Subjective Encounter Date: 11/03/19 Encounter Time: 11:13 Subjective: Mr. Schumacher was seen today in follow-up of abdominal pain, rectal bleeding and left hip pain. He says he continues to experience abdominal discomfort which radiates to his back. He also noted fairly constant left hip pain. He says it goes into his back, and has a burning quality to it. He says it has been there for about 2-3 months, and he can;t lay on that side, or flat on his back due to the pain. - Objective Vital Signs & Weight: Vital Signs (12 hours) Temp Pulse Resp BP Pulse Ox 11/03/19 07:51 98.3 F 64 18 111/71 98 11/03/19 04:00 98.3 F 67 18 128/75 97 11/03/19 00:00 99.5 F 69 18 126/78 98 Weight Weight 304 lb 8 oz I&O: 11/02/19 11/03/19 11/04/19 06:59 06:59 06:59 Intake Total 1150 540 Output Total 1300 850 Balance -150 -310 Result Diagrams: 11/03/19 05:21 11/03/19 05:21 Additional Labs: Accuchecks 11/03/19 11/02/19 11/02/19 04:21 20:43 17:04 POC Glucose 122 H 140 H 149 H Hospitalist ROS - Medication Medications: Active Medications Generic Name Dose Route Start Last Admin Trade Name Freq PRN Reason Stop Dose Admin Acetaminophen 650 mg 11/01/19 14:33 11/03/19 00:28 Tylenol PO 650 mg Q4H PRN Administration Headache/Fever/Mild Pain (1-3) Ondansetron HCl 4 mg 11/01/19 14:33 11/02/19 15:52 Zofran IVP 4 mg Q6H PRN Administration Nausea/Vomiting Pantoprazole Sodium 40 mg 11/03/19 09:00 11/03/19 10:05 Protonix PO 40 mg DAILY ADELFO Administration Sodium Chloride 10 ml 11/01/19 14:33 11/02/19 15:53 Flush - Normal Saline IVF 10 ml PRN PRN Administration Saline Flush - Exam Eye: PERRL, anicteric sclera Heart: RRR, no murmur, no gallops, no rubs, normal peripheral pulses Respiratory: CTAB, no wheezes, no rales, no ronchi, normal chest expansion, no tachypnea Gastrointestinal: soft, non-tender, non-distended, normal bowel sounds, no palpable masses Extremities: 1+ LE edema Neurological: normal sensation to touch, no weakness (Negative straight leg raise. + tenderness to palpation over the hip joint on the left, and some pain with internal and extrenal rotation,no weakness.) Hosp A/P (1) Abdominal pain Code(s): R10.9 - UNSPECIFIED ABDOMINAL PAIN Status: Acute (2) DM2 (diabetes mellitus, type 2) Status: Chronic (3) HTN (hypertension) Code(s): I10 - ESSENTIAL (PRIMARY) HYPERTENSION Status: Chronic - Plan * Abdominal pain- located in the RUQ. He has had a recent subtotal cholecystectomy- not sure if the pain is related to this- will discuss with GI * Rectal bleeding- EGD and colonoscopy findings noted. He is s/p banding of esophageal varices. Continue Nadolol, and Protonix, and Rocephin * HTN- blood pressure is stable * DM- stable * Left hip pain- ? etiology- will check an MRI if possible vs. CT scan of the hip and lumbar spine- need to rule-out septic joint.
--- NOTE | 2019-11-03 14:53 | MRI ---
MRI LEFT HIP: Date: 11-03-2019 Provided Clinical History: Left hip pain. FINDINGS: The left hip adductor, abductor and flexure tendons demonstrate an intact MR appearance. There is rufus ateral common hamstring origin tendinopathy and partial thickness interstitial tearing involving the common hamstring tendon origins. The amount of fluid within the hip joints appears physiologic. No focal concerning regional marrow or muscular signal abnormality is evident. The acetabular labrum and some acetabular articular cartilage are not well evaluated in the absence o f joint distention. There is a heterogeneous appear to the acetabular labrum anterosuperiorly that pr obably reflects degenerative tearing. Small paralabral cysts are demonstrated at the posterior superi or aspect of the hip joint. The visualized intrapelvic contents appear unremarkable. IMPRESSION: 1. Bilateral common hamstring origin tendinopathy and partial thickness interstitial tearing. 2. Degenerative tearing of the left acetabular labrum. POS: MORGAN
--- NOTE | 2019-11-03 15:11 | MRI ---
MRI LUMBAR SPINE: Date: 11-03-2019 Provided Clinical History: Low back pain, left hip pain. FINDINGS: Five lumbar vertebral bodies are assumed. Lumbar alignment appears normal. Vertebral body heights jm ear preserved. No focal concerning lesion or marrow or muscular signal abnormality is apparent. Bilat eral pedicle screws noted at L4-5. The visualized extraspinal soft tissues demonstrate possible splen omegaly. L1-2: There is a broad based disc bulge with an annular fissure involving the dorsal disc margin. The re is bilateral facet arthritis. There is mild central canal stenosis. L2-3: There is bilateral facet arthritis and a mild broad based disc bulge. There is left subarticula r narrowing with potential for impingement on the traversing left L3 nerve root. There is no signific ant foraminal narrowing apparent. L3-4: There is a broad based disc bulge and left greater than right facet arthritis. There is left castro barticular narrowing with potential for impingement along the traversing the left L4 nerve root. Ther e is moderate foraminal narrowing bilaterally with potential for impingement on the exiting L3 nerve roots bilaterally. L4-5: There is bilateral facet arthritis without significant central canal or foraminal narrowing jm arent. L5-S1: There is bilateral facet arthritis without significant central canal or foraminal narrowing ap parent. IMPRESSION: Lumbar degenerative changes producing subarticular and foraminal narrowing as described above. POS: MORGAN
[2019-11-03] MEDS: HumaLOG 300 UNITS/3 ML VIAL SC PRN (17:19)
--- NOTE | 2019-11-03 17:25 | PRG ---
DATE OF SERVICE: 11/03/2019 SUBJECTIVE: Mr. Hunter is resting in bed. He is in no distress. He still has some right upper quadrant pain at times. Temperature is 98, pulse 64, and blood pressure 111/60. LABORATORY DATA: Electrolytes normal. Bilirubin is 3.3. AST and ALT of 35 and 27, alkaline phosphatase is 82, glucose 129. Urine was negative on admission. He had an MRI of his lower extremities and lumbar spine. He has chronic degenerative disease. No evidence of septic hip or diskitis. ASSESSMENT: 1. Rectal bleeding secondary to hemorrhoids. 2. Grade 3 varices, early red ted signs, two columns banded prophylactically yesterday. This patient has intermittently low blood pressure and with his diabetes, I think would not tolerate a beta clyde. 3. Mild encephalopathy, the patient refuses lactulose. I have informed him and his sister he should not drive. 4. Chronic back and hip pain. No evidence of sepsis. He has Ultram at home. May continue that for pain control. 5. With regard to residual gallbladder tissue and possible stones I talked to Dr. Cooney. He had to abort the last cholecystectomy, take off part of the gallbladder. Hopefully, the remainder of the area will scar down. He is not a candidate for further surgeries. Job ID: [id number]
[2019-11-04 07:31] VITALS: BP 131/81; TEMP 98.3
[2019-11-04] MEDS ORDERED: Nadolol 40 MG TAB PO SCH (09:00)
[2019-11-04] MEDS: HumaLOG 300 UNITS/3 ML VIAL SC PRN (12:15)
--- NOTE | 2019-11-04 17:17 | PDOC.HOSPP ---
- Subjective Encounter Date: 11/04/19 Encounter Time: 17:15 Subjective: Mr. Hunter was seen in follow-up of abdominal pain GI Bleed. He does not have any new complaints. - Objective Vital Signs & Weight: Vital Signs (12 hours) Temp Pulse Resp BP Pulse Ox 11/04/19 07:31 98.3 F 64 18 131/81 98 Weight Weight 304 lb 8 oz I&O: 11/03/19 11/04/19 11/05/19 06:59 06:59 06:59 Intake Total 540 1000 Output Total 850 Balance -310 1000 Result Diagrams: 11/03/19 05:21 11/03/19 05:21 Additional Labs: Accuchecks 11/04/19 11/04/19 11/04/19 16:43 11:36 05:55 POC Glucose 112 H 184 H 115 H 11/03/19 20:14 POC Glucose 119 H Hospitalist ROS - Medication Medications: Active Medications Generic Name Dose Route Start Last Admin Trade Name Freq PRN Reason Stop Dose Admin Acetaminophen 650 mg 11/01/19 14:33 11/03/19 00:28 Tylenol PO 650 mg Q4H PRN Administration Headache/Fever/Mild Pain (1-3) Insulin Human Lispro 0 units 11/01/19 14:56 11/04/19 12:15 Humalog SC 2 unit .MILD SLIDING SCALE PRN Administration Mild Correctional Scale Nadolol 20 mg 11/04/19 09:00 11/04/19 09:36 Corgard PO 20 mg DAILY ADELFO Administration Ondansetron HCl 4 mg 11/01/19 14:33 11/02/19 15:52 Zofran IVP 4 mg Q6H PRN Administration Nausea/Vomiting Pantoprazole Sodium 40 mg 11/03/19 09:00 11/04/19 09:36 Protonix PO 40 mg DAILY ADELFO Administration Sodium Chloride 10 ml 11/01/19 14:33 11/02/19 15:53 Flush - Normal Saline IVF 10 ml PRN PRN Administration Saline Flush - Exam Eye: PERRL, anicteric sclera Heart: RRR, no murmur, no gallops Respiratory: CTAB, no wheezes, no rales, no ronchi, normal chest expansion Hosp A/P (1) Abdominal pain Code(s): R10.9 - UNSPECIFIED ABDOMINAL PAIN Status: Acute (2) DM2 (diabetes mellitus, type 2) Status: Chronic (3) HTN (hypertension) Code(s): I10 - ESSENTIAL (PRIMARY) HYPERTENSION Status: Chronic - Plan * Rectal bleeding- EGD and colonoscopy findings noted. He is s/p banding of esophageal varices. His blood pressure has been too low for Nadolol- discussed with Dr. Reza * DM- stable * Left hip pain- MRI findings noted. Likely due to DJD * Stable for discharge home.
--- NOTE | 2019-11-05 00:31 | DIS ---
DATE OF ADMISSION: 11/01/2019 DATE OF DISCHARGE: 11/04/2019 DISCHARGE DISPOSITION: Home. DISCHARGE DIAGNOSES: 1. Gastrointestinal bleed. 2. Esophageal varices. 3. Internal hemorrhoids. 4. Cirrhosis. 5. Cholelithiasis. 6. Chronic low back pain. 7. Morbid obesity. 8. Diabetes mellitus type 2. 9. Hypertension. DISCHARGE MEDICATIONS: 1. Aldactone 100 mg daily. 2. Metformin 1000 mg twice daily. 3. Lisinopril 20 mg daily. 4. [place] 7.5/325 q.6 as needed. 5. Amaryl 4 mg twice a day. 6. Lasix 40 mg daily. 7. Pepcid 20 mg twice a day. 8. Tylenol 3 q.6 as needed. PROCEDURES AND IMAGING: The patient had an abdominal ultrasound, in which it was limited due to the patient's body habitus, but there was some findings compatible with cholelithiasis and some gallbladder wall thickening. There is a positive Hairston sign. The patient had an upper and lower endoscopy showing grade 3 varices. No evidence of bleeding. The colonoscopy showed some rectal varices. There was nonbleeding internal hemorrhoids, which was likely the source of the bleeding. The patient also had an MRI of the hip showing bilateral common hamstring origin tendinopathy with a partial thickness interstitial tearing and some degenerative joint disease, and the patient also had an MRI of the lumbar spine showing DJD of the lumbar spine and some foraminal narrowing. CODE STATUS: Full code. ALLERGIES: NO KNOWN DRUG ALLERGIES. HOSPITAL COURSE: Mr. Hunter is a pleasant 59-year-old gentleman, who was admitted to the hospital after having bright red blood per rectum. He was evaluated by GI and had upper and lower endoscopy. He had evidence of esophageal varices, but no stigmata of bleeding. These were banded due to the concern that the patient's portal hypertension would potentially cause him to bleed due to his weight. It is felt that the bleeding came from the internal hemorrhoids, which had stopped by the time he was evaluated by GI. He had complained of some pain in his left hip. There was concern for possible septic joint. For this reason, a lumbar spine MRI and MRI of the hip were obtained, which were negative and I was of later informed by Dr. Reza that the patient had already had the same test done about six weeks earlier and they were negative at that time as well. The patient continued to complain of some right upper quadrant pain, which was likely due to the cholelithiasis. He is not deemed to be a suitable surgical candidate and the hope is that this area will spontaneously wall off and hopefully that will improve his symptoms. He will be followed closely in the outpatient setting with Dr. Reza and he is also to follow up with Orthopedic Surgery with regard to the hip pain. He had already been scheduled to have a steroid injection of the hip and also to follow up with his primary care physician in two weeks. Job ID: [id number]
--- NOTE | 2019-11-06 03:14 | PQF ---
[facility] [employer] JOSE Monge TONI MD [id number] CLINICAL DOCUMENTATION CLARIFICATION FORM: POST DISCHARGE Addendum to original discharge summary date: ____ Late entry note date: __ DATE: 11/06/19 ATTN: Gary Manjarrez Please exercise your independent, professional judgment in responding to the clarification form. Clinical indicators are provided on the bottom of this form for your review Can you please further clarify the specificity of Encephalopathy? Please check appropriate box(s): [ X] Encephalopathy: Type: [ X] Acute [ ] Subacute [ ] Chronic Etiology: [ ] Hypertensive [ ] Metabolic [ ] Toxic [ X] Hepatic w/o Coma [ ] Other (please specify) [ ] Transient Alteration of Awareness [ ] Other diagnosis please specify [ ] Unable to determine In addition, please specify: Present on Admission (POA): [X ] Yes [ ] No [ ] Unable to determine For continuity of documentation, please document condition throughout progress notes and discharge summary. Thank You. 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 Vital Signs 10/31: Temp=98.1 Pulse=72 Respi=16 YO=593/49 RISK FACTORS DM- H and P pg.2 HTN-- H and P pg.2 Liver cirrhosis- H and P pg.2 Obesity- H and P pg.2 Esophageal varices- PN pg.1 59 years old male ED Notes 10/31 Former Smoker ED Notes 10/31 Hypokalemia Consult 10/31 Dehydration Consult 10/31 TREATMENTS: Abdominal Ultrasound 10/31 Surgery Consult 10/31 EGD with Esophageal varices bonding- OP report pg.1 IV Fluids- MAR Rocephin 1gm IV- MAR Zosyn 3.375gm IV- MAR Monitor and replacement of electrolytes Consult 10/31 (This form is maintained as a part of the permanent medical record) 2014 [facility]. All Rights Reserved [email or web address]
== END 2019-11-04 19:10 | disposition home or self-care (01) | DRG 393 ==
LOC: ERS 10:58 → 2NO 12:54 → T4-B 11-02 18:51
PROVIDERS: ADMIT Internal Medicine; ATTEND Internal Medicine
PROC: 06L38CZ Occlusion of Esophageal Vein with Extraluminal Device, Via Natural or Artificial Opening Endoscopic (ICD-10-PCS; principal; 2019-11-02)
PROC: 0DJD8ZZ Inspection of Lower Intestinal Tract, Via Natural or Artificial Opening Endoscopic (ICD-10-PCS; 2019-11-02)
DX: K64.8 Other hemorrhoids (principal); K72.00 Acute and subacute hepatic failure without coma; I85.10 Secondary esophageal varices without bleeding; E87.1 Hypo-osmolality and hyponatremia; K80.20 Calculus of gallbladder without cholecystitis without obstruction; E11.9 Type 2 diabetes mellitus without complications; E66.9 Obesity, unspecified; M54.5 Low back pain; G89.29 Other chronic pain; K74.60 Unspecified cirrhosis of liver; E87.6 Hypokalemia; I10 Essential (primary) hypertension; K75.81 Nonalcoholic steatohepatitis (NASH); M51.36 Other intervertebral disc degeneration, lumbar region; E86.0 Dehydration; Z87.891 Personal history of nicotine dependence; Z79.84 Long term (current) use of oral hypoglycemic drugs; Z79.899 Other long term (current) drug therapy; Z90.49 Acquired absence of other specified parts of digestive tract; Z68.39 Body mass index [BMI] 39.0-39.9, adult
CPT/HCPCS: 36415; 36416; 71045; 72148; 76705; 80053; 81001; 83605; 83690; 83735; 85007; 85025; 85027; 85610; 85730; 93005; 96361; 96374; C9113; J0696; J2405; J2704; J3475; J3490; J7050

== ENCOUNTER 2020-10-22 15:43 | Emergency (ER) | payer SELFPAY ==
[2020-10-22] MEDS ORDERED: Ondansetron PF 4 MG/2 ML Vial ONE (16:10)
[2020-10-22] MEDS ORDERED: Morphine 4 MG/ML VIAL ONE ×3 (16:10→23:37)
[2020-10-22 16:15] LABS: #Basophils 0.1 thou/uL (0.0-0.2); #Eosinphils 0.3 thou/uL (0.0-0.7); #Monocytes 0.6 thou/uL (0.11-0.59); #Neutrophils 5.8 thou/uL (1.40-6.50); %Basophils 0.9 % (0.0-1.0); %Eosinophils 3.7 % (0.0-10.0); %Lymphocytes 13.1 % (21.0-51.0); %Neutrophils 74.3 % (42.0-75.0); Hemoglobin 14.2 g/dL (14.0-18.0); Mean Corpuscular HGB CONC 35.8 g/dL (32.0-36.0); Mean Corpuscular Hemoglobin 34.7 pg (27.0-31.0); Mean Corpuscular Volume 96.9 fL (78.0-98.0); Mean Platelet Volume 8.6 fL (7.4-10.4); Platelet Count 64 thou/uL (130-400); RBC Distribution Width 13.2 % (11.5-14.5); Red Blood Cell (RBC) Count 4.08 mill/uL (4.70-6.10); White Blood Cell (WBC) Count 7.8 thou/uL (4.8-10.8)
[2020-10-22 16:39] LABS: ALT (SGPT) 72 U/L (8-55); AST (SGOT) 109 U/L (5-34); Albumin 3.4 g/dL (3.4-4.8); Alkaline Phosphatase 180 U/L (40-110); Anion Gap 13 mmol/L (10-20); BUN (Urea Nitrogen) 10 mg/dL (8.4-25.7); Bilirubin, Total 23.4 mg/dL (0.2-1.2); Calc. Creatinine Clearance 0 mL/min (70-130); Calcium 8.4 mg/dL (7.8-10.44); Carbon Dioxide 23 mmol/L (23-31); Chloride 104 mmol/L (98-107); Globulin 2.9 g/dL (2.4-3.5); Glucose 129 mg/dL (80-115); Protein, Total 6.3 g/dL (5.8-8.1); Sodium 136 mmol/L (136-145)
[2020-10-22 16:53] LABS: Lipase 4616 U/L (8-78)
[2020-10-22] MEDS ORDERED: Piperacillin/Tazobactam 3.375 GM VIAL ONE (19:31)
[2020-10-22 20:41] LABS: SARS-CoV-2 NAA Rapid Test Not Detected (NotDetected)
[2020-10-22 21:57] LABS: Bacteria/HPF None Seen HPF (None Seen); Bilirubin 3+ (Negative); Blood, Urine Trace (Negative); Clarity Clear (Clear); Glucose, Urine (Dipstick) Normal (Negative); Ketone, Urine Negative (Negative); Leukocyte Negative Leu/uL (Negative); Mucous/LPF Rare LPF (<2+); Nitrite Negative (Negative); Protein, Urine (Dipstick) Negative (Neg-Trace); RBC/HPF 0-3 HPF (0-3); Renal Epithelial 0-3 HPF (None Seen); Specific Gravity, Urine 1.024 (1.002-1.036); Squamous Epithelial 0-3 HPF (0-3); WBC/HPF 0-3 HPF (0-3); pH, Urine 5.5 (5.0-9.0)
== END 2020-10-22 17:16 | disposition home or self-care (01) ==
LOC: ERS 15:43
DX: K85.10 Biliary acute pancreatitis without necrosis or infection (principal); K80.50 Calculus of bile duct without cholangitis or cholecystitis without obstruction; K74.60 Unspecified cirrhosis of liver; E11.9 Type 2 diabetes mellitus without complications; I10 Essential (primary) hypertension; Z79.899 Other long term (current) drug therapy; Z79.84 Long term (current) use of oral hypoglycemic drugs
CPT/HCPCS: 36415; 76705; 80053; 81003; 81015; 82140; 83690; 85025; 87040; 94760; 96365; 96375; 96376; J2270; J2405; J2543; U0002; U0005

== ENCOUNTER 2020-11-02 13:48 | Emergency (ER) | payer SELFPAY ==
[2020-11-02 14:25] LABS: #Basophils 0.1 thou/uL (0.0-0.2); #Eosinphils 0.4 thou/uL (0.0-0.7); #Lymphocytes 1.1 thou/uL (1.20-3.40); #Neutrophils 9.6 thou/uL (1.40-6.50); %Basophils 0.8 % (0.0-1.0); %Lymphocytes 8.8 % (21.0-51.0); %Neutrophils 79.5 % (42.0-75.0); Hemoglobin 15.3 g/dL (14.0-18.0); Mean Corpuscular HGB CONC 35.9 g/dL (32.0-36.0); Mean Corpuscular Hemoglobin 34.9 pg (27.0-31.0); Mean Platelet Volume 8.2 fL (7.4-10.4); Platelet Count 122 thou/uL (130-400); RBC Distribution Width 14.6 % (11.5-14.5); Red Blood Cell (RBC) Count 4.38 mill/uL (4.70-6.10); White Blood Cell (WBC) Count 12.1 thou/uL (4.8-10.8)
[2020-11-02 14:51] LABS: Bilirubin, Total 49.6 mg/dL (0.2-1.2)
[2020-11-02] MEDS ORDERED: Promethazine HCl 25 MG/ML VIAL ONE (14:51)
[2020-11-02] MEDS ORDERED: Ondansetron PF 4 MG/2 ML Vial ONE (14:52)
[2020-11-02 14:53] LABS: ALT (SGPT) 49 U/L (8-55); AST (SGOT) 106 U/L (5-34); Alkaline Phosphatase 185 U/L (40-110); Anion Gap 15 mmol/L (10-20); BUN (Urea Nitrogen) 37 mg/dL (8.4-25.7); Calc. Creatinine Clearance 0 mL/min (70-130); Calcium 9.3 mg/dL (7.8-10.44); Carbon Dioxide 22 mmol/L (23-31); Chloride 97 mmol/L (98-107); Glucose 146 mg/dL (80-115); Lipase 71 U/L (8-78); Potassium 4.9 mmol/L (3.5-5.1); Sodium 129 mmol/L (136-145)
[2020-11-02] MEDS ORDERED: Sodium Chloride 0.9% 1,000 ML IV SCH (16:45)
[2020-11-02] MEDS ORDERED: Albumin 25% 25 GM/100 ML BOT IVPB SCH (17:00)
[2020-11-02 17:28] LABS: Bilirubin Large (Negative); Blood, Urine Negative (Negative); Glucose, Urine (Dipstick) Negative (Negative); Ketone, Urine Negative (Negative); Leukocyte Negative (Negative); Nitrite Negative (Negative); Protein, Urine (Dipstick) Negative (Neg-Trace); Specific Gravity, Urine 1.015 (1.005-1.030); Urobilinogen 0.2 mg/dL (Less than 2)
[2020-11-02 17:31] LABS: Clarity Clear (Clear)
[2020-11-02] MEDS ORDERED: Piperacillin/Tazobactam 4.5 GM VIAL ONE (17:57)
[2020-11-02 18:04] LABS: SARS-CoV-2 NAA Rapid Test Not Detected (NotDetected)
[2020-11-02 18:07] LABS: INR-International Normal Ratio 1.6; Prothrombin Time 19.1 sec (12.0-14.7)
[2020-11-02 18:08] LABS: PTT 45.4 sec (22.9-36.1)
== END 2020-11-02 20:20 | disposition short-term general hospital (02) ==
LOC: ERS 13:48
DX: K74.60 Unspecified cirrhosis of liver (principal); E80.6 Other disorders of bilirubin metabolism; K72.90 Hepatic failure, unspecified without coma; E11.9 Type 2 diabetes mellitus without complications; I10 Essential (primary) hypertension; Z20.822 Contact with and (suspected) exposure to COVID-19; Z79.899 Other long term (current) drug therapy; Z79.84 Long term (current) use of oral hypoglycemic drugs
CPT/HCPCS: 36415; 76705; 80053; 81003; 82140; 83605; 83690; 85025; 85610; 85730; 87040; 87086; 96365; 96366; 96368; 96375; J2405; J2543; J2550; P9047; U0002; U0005